=== PATIENT | male | born 1965 | race Caucasian/White ===

== ENCOUNTER 2023-02-03 01:15 | Day surgery (SDC) | payer OTHER, SELFPAY ==
[2023-01-25 16:22] VITALS: BMI 29.1
[2023-02-03 08:51] VITALS: BP 146/91; PULSE 87; RESP 18; TEMP 36.6; O2SAT 100; BMI 29.0
[2023-02-03] MEDS: LACTATED RINGERS 1,000 ML 150 ML IV CONT (09:07)
--- NOTE | 2023-02-03 09:10 | WPDANESEPPF ---
Anes - Initial Pre Proc Eval Procedure: Operation Date: 02/03/23 09:30 Proposed Procedures p Screening Colonoscopy - Rustam Mason MD Date/Time: 02/03/23 09:10 Surgeon: Rustam Mason MD Pre Op Diagnosis: family hx colon ca, neoplasm screening Patient Data Age: 57 Gender: M Height: 1.83 m Weight: 97.3 kg Last Vital Signs Temp 97.8 F 02/03/23 08:51 Pulse 87 02/03/23 08:51 Resp 18 02/03/23 08:51 BP 146/91 H 02/03/23 08:51 Pulse Ox 100 02/03/23 08:51 O2 Del Method Room Air 02/03/23 08:51 Allergies Allergy/AdvReac Type Severity Reaction Status Date / Time No Known Allergies Allergy Verified 01/25/23 16:23 Home Medications Medication Instructions Recorded Confirmed Type loratadine 10 mg tablet (Claritin) 10 mg PO DAILY 12/24/19 01/25/23 History amlodipine 10 mg-olmesartan 40 mg 1 tablet PO DAILY #90 tabs 02/11/20 01/25/23 Rx tablet atorvastatin 20 mg tablet (Lipitor) 20 mg PO DAILY #90 tabs 04/02/20 01/25/23 Rx umeclidinium 62.5 mcg-vilanterol See Rx Instructions .Route 04/19/22 01/25/23 Rx 25 mcg/actuation powdr for .COMPLEX #180 blisters inhalation (Anoro Ellipta) minoxidil 2.5 mg tablet 2.5 mg PO BID #180 tabs 01/05/23 01/25/23 Rx sodium,potassium,mag sulfates 17.5 See Rx Instructions PO .COMPLEX 01/12/23 01/25/23 Rx gram-3.13 gram-1.6 gram oral soln #354 mL (Suprep Bowel Prep Kit) eplerenone 50 mg tablet 50 mg PO DAILY 01/25/23 01/25/23 History hydrochlorothiazide 50 mg tablet 50 mg PO DAILY 01/25/23 01/25/23 History metformin 500 mg tablet 500 mg PO BID 01/25/23 01/25/23 History Patient hx anesthesia problems: none Family hx anesthesia problems: none Results Review: All pre-operative results and documents have been reviewed as part of the pre-operative evaluation. [facility] Surgical History Surgical History Hx of tonsillectomy Family History Family History Father Carcinoma of colon Mother Family history of malignant neoplasm of breast in first degree relative Other Family history of malignant neoplasm of breast Social History Social History Smoking packs per day: 1 Smoking cigarettes per day: 20.0 Years smoked: 40 Smoking pack-years: 40.00 Smoking status: Current every day smoker Smokeless tobacco user: chewing tobacco Alcohol intake: current Drinks per week: 14 Alcohol use details: BEERS Substance use: never Substance use type: does not use Lack of Transportation: No Lack of Food: Never True Current Housing: I Have Housing Concerned About Future Housing: No Difficulty Paying Gas/Electric Bills: No Difficulty Paying for Meds: No Currently Unemployed: No Education: Associate Degree Difficulty w/ Childcare or Family Care: No Living arrangements: with family Spiritual care concerns: No Anes - Eval Final PreProcedure Day of Procedure 02/03/23 09:10 Patient weight: normal Heart: regular rate and rhythm Lungs: clear to auscultation Airway: Mallampati scale class II Neurological: alert and oriented Last oral intake: >/= 8 hours ASA classification: III Emergent: no Anesthetic plan: proceed Anesthesia type and monitoring: general GIVS and standard monitoring Results Review: All pre-operative results and documents have been reviewed as part of the pre-operative evaluation. Informed Consent: The patient's anesthetic plan and its attendant risks and benefits were discussed with the patient/family/POA. Questions were solicited and answers provided to the satisfaction of the patient/family/POA.
--- NOTE | 2023-02-03 09:17 | PM.HPGS ---
History of Present Illness History of Present Illness Consent: Risks, benefits, and alternatives have been discussed and questions answered. Patient agrees to proceed with procedure. Chief complaint: family hx colon ca, neoplasm screening Narrative: Elías Salazar is a 57 year old male Presents for screening colonoscopy. Patient's current weight appetite and bowel movements are normal. Patient denies abdominal pain. He has had no bleeding. Family history is significant that his father had a small colon cancer resected. Patient presents today for screening colonoscopy. Review of Systems Review of Systems: Review of systems noncontributory. [facility] Surgical History Surgical History Hx of tonsillectomy Family History Family History Father Carcinoma of colon Mother Family history of malignant neoplasm of breast in first degree relative Other Family history of malignant neoplasm of breast Social History Social History Smoking packs per day: 1 Smoking cigarettes per day: 20.0 Years smoked: 40 Smoking pack-years: 40.00 Smoking status: Current every day smoker Smokeless tobacco user: chewing tobacco Alcohol intake: current Drinks per week: 14 Alcohol use details: BEERS Substance use: never Substance use type: does not use Lack of Transportation: No Lack of Food: Never True Current Housing: I Have Housing Concerned About Future Housing: No Difficulty Paying Gas/Electric Bills: No Difficulty Paying for Meds: No Currently Unemployed: No Education: Associate Degree Difficulty w/ Childcare or Family Care: No Living arrangements: with family Spiritual care concerns: No Meds Home Medications and Allergies Home Medications Medication Instructions Recorded Confirmed Type loratadine 10 mg tablet (Claritin) 10 mg PO DAILY 12/24/19 01/25/23 History amlodipine 10 mg-olmesartan 40 mg 1 tablet PO DAILY #90 tabs 02/11/20 01/25/23 Rx tablet atorvastatin 20 mg tablet (Lipitor) 20 mg PO DAILY #90 tabs 04/02/20 01/25/23 Rx umeclidinium 62.5 mcg-vilanterol See Rx Instructions .Route 04/19/22 01/25/23 Rx 25 mcg/actuation powdr for .COMPLEX #180 blisters inhalation (Anoro Ellipta) minoxidil 2.5 mg tablet 2.5 mg PO BID #180 tabs 01/05/23 01/25/23 Rx sodium,potassium,mag sulfates 17.5 See Rx Instructions PO .COMPLEX 01/12/23 01/25/23 Rx gram-3.13 gram-1.6 gram oral soln #354 mL (Suprep Bowel Prep Kit) eplerenone 50 mg tablet 50 mg PO DAILY 01/25/23 01/25/23 History hydrochlorothiazide 50 mg tablet 50 mg PO DAILY 01/25/23 01/25/23 History metformin 500 mg tablet 500 mg PO BID 01/25/23 01/25/23 History Allergies Allergy/AdvReac Type Severity Reaction Status Date / Time No Known Allergies Allergy Verified 01/25/23 16:23 Vital Signs Vital Signs - 24 hr 02/03/23 08:51 Temperature 97.8 F Pulse Rate 87 Respiratory Rate 18 Blood Pressure 146/91 H Pulse Oximetry 100 Oxygen Delivery Room Air Exam Narrative: Physical exam reveals patient to be alert. Vital signs stable. HEENT exam is unremarkable. Patient is anicteric. Lungs are clear to auscultation and percussion. Heart is without murmur or extra sounds. Abdomen bowel sounds are present soft nontender with no organomegaly. Digital external rectal exam is normal. Assessment and Plan Assessment and plan (1) Family history of colon cancer in father: Code(s): Z80.0 - Family history of malignant neoplasm of digestive organs Status: Acute Assessment and Plan: Patient's father had a colon cancer. Plan for surveillance colonoscopy now. Consider this a 5 year intervals in the future.
[2023-02-03 09:52] VITALS: BP 117/78; PULSE 87; RESP 18; O2SAT 95
[2023-02-03 10:02] VITALS: BP 138/87; PULSE 91; RESP 20; O2SAT 99
[2023-02-03 10:12] VITALS: BP 135/90; PULSE 89; RESP 18; O2SAT 99
== END 2023-02-03 10:21 | disposition home or self-care (01) ==
PROVIDERS: PCP Emergency Medicine; Visit Provider Internal Medicine Gastroenterology
PROC: 0DJD8ZZ Inspection of Lower Intestinal Tract, Via Natural or Artificial Opening Endoscopic (ICD-10-PCS; CPT 45378; principal; 2023-02-03 09:30)
DX: Z12.11 Encounter for screening for malignant neoplasm of colon (principal); K63.5 Polyp of colon; K64.8 Other hemorrhoids; Z80.0 Family history of malignant neoplasm of digestive organs; F17.210 Nicotine dependence, cigarettes, uncomplicated; F17.220 Nicotine dependence, chewing tobacco, uncomplicated
CPT/HCPCS: 45385; 88305; J2704; J7120

== ENCOUNTER → 2023-04-22 06:42 | Outpatient (REF) | payer OTHER, SELFPAY ==
[2023-04-22 09:40] LABS: Thyroid Stimulating Hormone 0.997 uIU/mL (0.465-4.680)
[2023-04-26 22:31] LABS: Osmolality, Urine 476 mOsm/kg (50-1200)
== END ==
LOC: ANHOUTPT 06:42
PROVIDERS: PCP Emergency Medicine; Visit Provider Internal Medicine Nephrology
DX: E87.1 Hypo-osmolality and hyponatremia (principal)
CPT/HCPCS: 82533; 83930; 83935; 84443; 96372; J0834

== ENCOUNTER 2023-10-10 12:25 | Inpatient (IN) | payer BC, SELFPAY ==
[2023-10-10] VITALS (25 sets, daily range): BP systolic 88–141; BP diastolic 50–79; PULSE 106–133; RESP 16–32; TEMP 36.3–36.9; O2SAT 82–98; BMI 26.9
--- NOTE | ~2023-10-10 | XR_ITS ---
EXAMINATION: XR chest 1V portable DATE: 10/14/2023 10:24 INDICATION: Pneumonia. TECHNIQUE: A single frontal view of the chest was obtained on 2 radiographs. COMPARISON: Chest single view 10/12/2023, chest CT 10/10/2023 FINDINGS: There is a diffuse reticulonodular pattern in the lungs, right worse than left. No pleural effusion or pneumothorax. The heart size is normal. IMPRESSION: 1. Stable diffuse reticulonodular pattern in the lungs, right worse than left, consistent with pneumo abdoulaye. Reviewed, dictated and finalized at [facility]. CAL STAFF SERVICES COORDINATOR IMPRESSION: 1. Stable diffuse reticulonodular pattern in the lungs, right worse than left, consistent with pneumonia.
--- NOTE | ~2023-10-10 | XR_ITS ---
Portable chest x-ray Comparison: 10/10/2023 Clinical History: Pneumonia Findings: Probable mild interstitial edema pattern present. No focal consolidation or pleural effusi on. Cardiomediastinal silhouette is stable. Bones and soft tissues are unremarkable. Impression: Probable mild interstitial edema pattern. Correlate clinically for infection. Reviewed, dictated and finalized at [facility]. TENANCE CRAFTSMAN Impression: Probable mild interstitial edema pattern. Correlate clinically for infection.
--- NOTE | ~2023-10-10 | CT_ITS ---
EXAMINATION: CTA chest PE protocol DATE: 10/10/2023 14:41 INDICATION: Shortness of breath with exertion, cough after cutting grass 2 weeks ago. Elevated d-dime r. TECHNIQUE: Computed tomography angiography (CTA) of the chest was performed with 100 mL Omnipaque-350 intravenous contrast timed to evaluate the pulmonary arteries. Coronal maximum intensity projection 3D-reconstructions were created by the technologist. Automated exposure control and iterative reconst ruction technique were employed. Exam dose: 656.27 mGy-cm total exam DLP. COMPARISON: 10/10/2023 AP and lateral chest FINDINGS: There is diagnostic contrast enhancement of the pulmonary arteries and no evidence of pulmo nary embolism. No thoracic aortic aneurysm or dissection is detected. Small pericardial effusion. Heart size is normal. There are patchy nodular appearing infiltrates scattered throughout both lungs including all lobes, r ight greater than left. There is one cavitary infiltrate or mass measuring approximately 1.6 cm, involving the posteromedial right lower lobe, superior segment. There is mild mediastinal and predominantly right hilar lymph node prominence, likely reactive. Bilateral adrenal hypertrophy. Included skeletal structures are unremarkable other than degenerative changes of the cervical, thorac ic and lumbar spine. IMPRESSION: No evidence of pulmonary embolism Diffuse patchy nodular appearing bilateral pulmonary infiltrates with mild likely reactive mediastina l and right hilar lymphadenopathy. Bilateral pneumonia is suspected 1. Proximal 0.6 and a cavitary infiltrate or less likely mass is noted in the superior segment of the right lower lobe; continued follow-up to resolution is recommended to exclude any malignancy. Reviewed, dictated and finalized at [facility]. Reviewed, dictated and finalized at [facility]. OGRAPHY PROFESSOR IMPRESSION: No evidence of pulmonary embolism Diffuse patchy nodular appearing bilateral pulmonary infiltrates with mild like ly reactive mediastinal and right hilar lymphadenopathy. Bilateral pneumonia is suspected 1. Proximal 0.6 and a cavitary infiltrate or less likely mass is noted in the s uperior segment of the right lower lobe; continued follow-up to resolution is r ecommended to exclude any malignancy.
--- NOTE | ~2023-10-10 | XR_ITS ---
Clinical Indication: Shortness of breath AP and lateral views of the chest: Comparison: None Findings: There is mild interstitial prominence, possible minimal patchy haziness in the right lung. Cardiomediastinal silhouette is within normal limits. Bones and soft tissues are unremarkable. Impression: Findings suggestive of mild interstitial pulmonary edema versus atypical infection. Reviewed, dictated and finalized at [facility]. PATIONAL THERAPY TEACHER Impression: Findings suggestive of mild interstitial pulmonary edema versus atypical infect ion.
--- NOTE | 2023-10-10 12:54 | ECG_ITS ---
Measurements Intervals [place] Rate: 121 P: 81 IN: 187 QRS: 108 QRSD: 122 T: -31 QT: 311 QTc: 442 Interpretive Statements SINUS TACHYCARDIA RIGHT AXIS DEVIATION INCOMPLETE RIGHT BUNDLE BRANCH BLOCK BORDERLINE R WAVE PROGRESSION, ANTERIOR LEADS NONSPECIFIC ST ELEVATION IN ANTEROLATERAL LEADS BORDERLINE ST-T WAVE ABNORMALITY- INFERIOR LEADS BASELINE ARTIFACT- I, III, AVL ABNORMAL ECG NO PREVIOUS ECG AVAILABLE FOR COMPARISON Electronically Signed On 10-10-2023 13:52:17 [employer] by Konstantin Kaur D.O.
[2023-10-10 13:16] LABS: Hematocrit 45.1 % (42.0-52.0); Hemoglobin 14.8 g/dL (14.0-18.0); Mean Corpuscular HGB Conc 32.8 g/dl (32-36); Mean Corpuscular Hemoglobin 31.5 pg (26-34); Mean Platelet Volume 8.5 fl (7.4-10.4); Platelet Count Result 294 k/mm3 (150-375); Red Cell Distribution Width 13.2 % (11.5-14.5); White Blood Count 11.3 K/mm3 (4.5-10.0)
--- NOTE | 2023-10-10 13:23 | ED.GENADULT ---
HPI - General Adult General Chief complaint: Shortness of Breath/Dyspnea Stated complaint: fatigue, decreased appetite Time Seen by Provider: 10/10/23 13:13 History of Present Illness HPI narrative: 57-year-old male history of smoking history of COPD presented to the emergency department for evaluation increased cough and congestion. Patient states he initially started noticing his symptoms Tuesday after mowing the grass. Patient states over the last few days he has had increased sputum production cough and shortness of breath. Patient states he is a smoker and does continue to smoke but has not smoked over the last few days. Patient denies any chest pain but does have exertional shortness of breath. Related Data Home Medications Medication Instructions Recorded Confirmed loratadine 10 mg tablet (Claritin) 10 mg PO DAILY 12/24/19 09/21/23 eplerenone 50 mg tablet 50 mg PO DAILY 01/25/23 09/21/23 metformin 500 mg tablet 500 mg PO BID 01/25/23 09/21/23 Allergies Allergy/AdvReac Type Severity Reaction Status Date / Time No Known Allergies Allergy Verified 09/21/23 10:49 Review of Systems Review of Systems: All systems reviewed & are unremarkable except as noted in HPI and below PMFSH Surgical History Surgical History Hx of tonsillectomy Family History Family History Father Carcinoma of colon Mother Family history of malignant neoplasm of breast in first degree relative Other Family history of malignant neoplasm of breast Social History Social History (Updated 09/21/23 @ 10:51 by Shannan Meyer) Social History: Caffeine- coffee Smoking packs per day: 1 Smoking cigarettes per day: 20.0 Years smoked: 40 Smoking pack-years: 40.00 Smoking status: Current every day smoker Alcohol intake: current Drinks per week: 14 Alcohol use details: BEERS Substance use: never Substance use type: does not use Lack of Transportation: No Lack of Food: Never True Current Housing: I Have Housing Concerned About Future Housing: No Difficulty Paying Gas/Electric Bills: No Difficulty Paying for Meds: No Currently Unemployed: No Education: Associate Degree Difficulty w/ Childcare or Family Care: No Living arrangements: with family Gender identity (if verbalized by the patient): Male Spiritual care concerns: No Exam Narrative: APPEARANCE: Well appearing, no pain, no distress, well-nourished. HEAD: normocephalic, atraumatic. EYES: PERRLA/EOMI, conjunctivae clear. NOSE: Normal no drainage NECK: Supple. No adenopathy, no masses. RESPIRATORY: Decreased air movement bilaterally, wheeze bilaterally CARDIOVASCULAR: Regular rate and rhythm without murmurs rubs or gallops. ABDOMINAL: Soft, nontender, nondistended, normal bowel sounds MUSCULOSKELETAL: Moves all extremities. Strength/ROM intact, No edema, No calf tenderness. NEURO: Alert. Cranial nerves II through XII intact. SKIN: Warm, dry. Normal Color Course Course Emergency Course: 49-year-old male presented the emergency department for evaluation of increased shortness of breath. Patient does have an elevated BNP and does have evidence of pulm edema on his chest x-ray. D-dimer was elevated and CTA PE did show evidence of pneumonia. Patient was started on antibiotics in the ED for pneumonia. Patient was initially treated with a dose of IV Lasix but patient's blood pressure did become soft so he was treated with 500 mL normal saline bolus. Case was discussed with hospitalist and patient was accepted for admission. Patient and family were updated on the plan for admission. All question concerns were addressed Vital Signs Vital signs: Vital Signs Temperature 98.4 F 10/10/23 12:40 Pulse Rate 122 H 10/10/23 12:40 Respiratory Rate 24 H 10/10/23 12:40 Blood Pressure 92/50 L 10/10/23 12:40 Pulse Oximetry 82 L 09/28
[2023-10-10 13:26] LABS: Alanine Aminotransferase 65 U/L (6-50); Albumin Level 4.2 g/dL (3.5-5.1); Alkaline Phosphatase 75 U/L (38-126); Anion Gap 10 mmol/L (8-16); Aspartate Amino Transferase 51 U/L (17-59); Bilirubin,Total 0.7 mg/dL (0.2-1.3); Blood Urea Nitrogen 58 mg/dL (9-20); Carbon Dioxide 35 mmol/L (22-30); Chloride 89 mmol/L (98-107); Estimated CRCL calculation 71 ml/min; Estimated Glomerular Filt Rate > 60; Glucose 135 mg/dL (65-110); Potassium 3.6 mmol/L (3.4-5.0); Sodium 134 mmol/L (137-145)
--- NOTE | 2023-10-10 13:31 | PCRCNOTE ---
Patient taken to XR, will give Neb Tx. & obtain ABG when pt. Returns
[2023-10-10] MEDS: methylPREDNISolone SOD SUCC 125 MG VIAL IV PUSH (13:36)
[2023-10-10 13:41] LABS: Band Neutrophils Percent 15 % (0-6); Eosinophils Absolute Manual 0.11 K/mm3 (0.02-0.5); Eosinophils Percent Manual 1 % (0-4); Lymphocytes Percent Manual 8 % (18-44); Monocytes Percent Manual 16 % (3-9); Neutrophils Absolute Manual 8.47 K/mm3 (1.3-6.7); Neutrophils Percent Manual 60 % (46-73); Nucleated Red Blood Cells 1 %; Total Cells Counted 100
[2023-10-10 13:42] LABS: Platelet Estimate Adequate (Adequate)
[2023-10-10 13:43] LABS: Schistocytes None Seen (NORMAL)
[2023-10-10] MEDS: ALBUTEROL SULFATE NEB 2.5 MG/3 ML INH 5 MG INHALATION (13:44)
[2023-10-10 13:53] LABS: Alveolar/Arterial O2 Gradient 136.4 mmHg; Base Excess ABG 1.7 mEq/l (+/-2.0); Carboxyhemoglobin 2.2 % THb (0-2.0); Device NASAL CANNULA; Fractional Inspired Oxygen 36 %; HCO3 ABG 28.9 mEq/l (22.0-26.0); Methemoglobin ABG 0.3 %THb (0-1.5); Modified Allen's Test Pass; Oxygen Content ABG 18.8 %vol (16.0-22.0); Oxygen Saturation ABG 87.1 % (95.0-100.0); Oxyhemoglobin 84.1 % THb (90.0-100.0); PCO2 ABG 55.1 mmHg (35.0-45.0); PO2 ABG 56.4 mmHg (80.0-100.0); PO2 FiO2 Ratio Arterial Blood 1.57 %; Reduced Hemoglobin 13.4 %THb (0-5.0); Site Drawn RIGHT RADIAL; Total Hemoglobin 15.9 g/dL (12.0-18.0); pH ABG 7.337 (7.350-7.450)
[2023-10-10 14:08] LABS: D Dimer 0.71 ug/mL (<0.48)
[2023-10-10] MEDS: LEVALBUTEROL NEB 1.25 MG/3 ML 2.5 MG INHALATION (14:09)
[2023-10-10 14:24] LABS: Influenza A QL RT-PCR Negative (Negative); Influenza B QL RT-PCR Negative (Negative); RSV RNA, RT-PCR Negative (Negative); SARS-CoV-2 RNA PCR Negative (Negative)
[2023-10-10 14:25] LABS: NT Pro B Type Natriuretic Pept 6090 pg/mL (19.9-100)
[2023-10-10] MEDS: FUROSEMIDE INJ 40 MG/4 ML VIAL IV PUSH (15:28)
[2023-10-10] MEDS: methylPREDNISolone SOD SUCC 125 MG VIAL (15:28)
[2023-10-10] MEDS: AZITHROMYCIN 500 MG/NS 250 ML 500 MG/250 ML BAG 250 MG IVPB (16:32)
[2023-10-10 16:34] LABS: Lactic Acid Reflex 1.3 mmol/L (0.7-2.0)
[2023-10-10 17:21] LABS: MRSA (PCR) NOT DETECTED (NOT DETECTE)
[2023-10-10] MEDS: SODIUM CHLORIDE 0.9% IV 500 ML 999 ML IV CONT (18:05)
[2023-10-10] MEDS: VANCOMYCIN 1,250 MG/NS 250 ML 1,250 MG/250 ML BAG 166.67 MG IVPB ×2 (18:51→21:04)
[2023-10-10] MEDS: LEVALBUTEROL NEB 1.25 MG/3 ML 0.63 MG INHALATION (20:02)
--- NOTE | 2023-10-10 20:16 | PM.IMHP ---
H&P: HPI History of Present Illness Date/Time: 10/10/23 16:15 Chief Complaint: Shortness of breath. Narrative: This is a pleasant 57-year-old male smoker with probable COPD, hypertension, hyperlipidemia, and prediabetes who presented to the emergency department via private vehicle for evaluation of shortness of breath. The patient provides the following history. He has not felt well for nearly a week with progressive shortness of breath, cough productive of yellow/brown phlegm, decreased appetite, and fatigue. His symptoms started after mowing the grass and he initially attributed his symptoms to possible allergies. Over the course of the last 3 days he has been extremely fatigued and states that he slept almost all weekend. He has had some loose stools but that seems to be improving. He had sweats but no documented fever. He denies headache, sinus congestion, sore throat, sick contacts, exertional chest pain, pleuritic pain, and vomiting. He denies sick contacts. In the ED: He has been afebrile since arrival. He has been consistently in a sinus tachycardia with rates in the 1 teens to 120s. SpO2 was 82% on arrival and he was placed on high-flow nasal cannula and was eventually transitioned to BiPAP. Labs were significant for a WBC count of 11.3 with 15% bands, D-dimer 0.71, sodium 134, potassium 3.6, carbon dioxide 35, BUN 58, creatinine 1.10, lactic acid 1.3, proBNP 6090. He tested negative for influenza, RSV, and COVID. Chest x-ray showed findings suggestive of mild interstitial pulmonary edema versus atypical infection. Chest CTA showed no evidence of pulmonary embolism but did note bilateral pulmonary infiltrates and an approximately 1.6 cm cavitary infiltrate in the superior segment of the right lower lobe. ABG showed a pH of 7.327, pCO2 55.1, bicarb 28.9. He was given a nebulizer treatment, Solu-Medrol, azithromycin, ceftriaxone, and vancomycin he is being admitted in this setting for further treatment. Review of Systems Review of Systems: Twelve systems were reviewed and are negative except for as per HPI. [facility] Past Medical History Medical History (Updated 10/10/23 @ 20:41 by Taylor Landrum PA-C) Hyperlipidemia Hypertension Prediabetes Suspected chronic obstructive pulmonary disease based on initial evaluation Tobacco dependence Surgical History Surgical History (Updated 10/10/23 @ 20:34 by Taylor Landrum PA-C) History of tonsillectomy Family History Family History Father Carcinoma of colon Mother Family history of malignant neoplasm of breast in first degree relative Other Family history of malignant neoplasm of breast Social History Social History (Updated 10/10/23 @ 20:35 by Taylor Landrum PA-C) Social History: Surrogate medical decision maker: Cecy Salazar, spouse. Code status: Full code. Smoking packs per day: 1 Smoking cigarettes per day: 20.0 Years smoked: 40 Smoking pack-years: 40.00 Smoking status: Current every day smoker Alcohol intake: current Drinks per week: 14 Alcohol use details: Beer Substance use: never Substance use type: does not use Lack of Transportation: No Lack of Food: Never True Current Housing: I Have Housing Concerned About Future Housing: No Difficulty Paying Gas/Electric Bills: No Difficulty Paying for Meds: No Currently Unemployed: No Education: Associate Degree Difficulty w/ Childcare or Family Care: No Living arrangements: with family Spiritual care concerns: No Meds Home Medications and Allergies Home Medications Medication Instructions Recorded Confirmed Type loratadine 10 mg tablet (Claritin) 10 mg PO DAILY 12/24/19 10/10/23 History minoxidil 2.5 mg tablet 2.5 mg PO BID #180 tabs 01/05/23 10/10/23 Rx eplerenone 50 mg tablet 50 mg PO DAILY 01/25/23 10/10/23 History metformin 500 mg tablet 500 mg PO BID 01/25/23 10/10/23 History yovany
--- NOTE | 2023-10-10 20:52 | ADMGEN ---
This patient, Elías Salazar, was admitted to IMU Room 201-01. Patient/family oriented to hospital policies and general routines including ID bracelet, bed and alarms, visiting hours, pain management, procedures, bathroom and other care routines, personal items, smoking policy, room service/diet, and visiting hours. Information on how to activate the Rapid Response Team has been discussed. Patient/Family are encouraged to report perceived risks to care and to ask questions if they do not understand what they are told or what they should do.
[2023-10-10 20:58] LABS: Alveolar/Arterial O2 Gradient 217.3 mmHg; Base Excess ABG 3.5 mEq/l (+/-2.0); Carboxyhemoglobin 1.2 % THb (0-2.0); Fractional Inspired Oxygen 50 %; HCO3 ABG 31.4 mEq/l (22.0-26.0); Methemoglobin ABG 0.2 %THb (0-1.5); Oxygen Content ABG 19.6 %vol (16.0-22.0); Oxygen Saturation ABG 92.6 % (95.0-100.0); Oxyhemoglobin 91.5 % THb (90.0-100.0); PO2 ABG 70.4 mmHg (80.0-100.0); PO2 FiO2 Ratio Arterial Blood 1.41 %; Reduced Hemoglobin 7.1 %THb (0-5.0); Total Hemoglobin 15.2 g/dL (12.0-18.0); pH ABG 7.328 (7.350-7.450)
[2023-10-10 21:03] LABS: Device HIGH FLOW NASAL CANN; Modified Allen's Test Pass; PCO2 ABG 61.2 mmHg (35.0-45.0); Site Drawn RIGHT RADIAL
[2023-10-10] MEDS: guaiFENesin 12 HR 600 MG TABCR PO (21:12)
[2023-10-10 23:35] LABS: Alveolar/Arterial O2 Gradient 219.4 mmHg; Fractional Inspired Oxygen 50 %; HCO3 ABG 30.1 mEq/l (22.0-26.0); Oxygen Content ABG 18.7 %vol (16.0-22.0); Oxygen Saturation ABG 95.5 % (95.0-100.0); Oxyhemoglobin 94.3 % THb (90.0-100.0); PO2 ABG 79.7 mmHg (80.0-100.0); PO2 FiO2 Ratio Arterial Blood 1.59 %; Total Hemoglobin 14.1 g/dL (12.0-18.0); pH ABG 7.389 (7.350-7.450)
[2023-10-10 23:36] LABS: Device NON-INVASIVE VENT; Modified Allen's Test Pass; Site Drawn LEFT RADIAL
[2023-10-10 23:37] LABS: Non-Invasive Expiratory Pressure 8 CMH2O; Non-Invasive Inspiratory Pressure 18 CMH2O; Non-Invasive Vent Rate 20 /MIN
[2023-10-11] VITALS (31 sets, daily range): BP systolic 82–146; BP diastolic 48–80; PULSE 92–124; RESP 18–28; TEMP 36.4–37.3; O2SAT 90–100
--- NOTE | 2023-10-11 | ECHO_ITS ---
Patient Info Name: Elías Salazar Age: 57 years : 1965 Gender: Male Ht: 72 in Wt: 198 lbs BSA: 2.15 m2 HR: 99 bpm BP: 96 / 56 mmHg Heart Rhythm: Tachycardia Technical Quality: Fair Exam Date: 10/11/2023 10:27 AM Exam Location: Echo Lab Patient Status: Inpatient Admit Date: 10/11/2023 Staff Ordering Physician: Taylor Landrum PA-C Plating Tank Operator: Jyoti Young RDCS Attending Provider: Alejandro Gonzalez MD Referring Physician: Diallo COOLEY; Exam Type: CA echo doppler w bubble study Study Info Indications - hypoxia, smoker, elevated BNP Complete two-dimensional, color flow and Doppler transthoracic echocardiogram is performed with agitated saline. Contrast/Agitated Saline Contrast/Ag. Saline: Agitated Saline Amount: 20.00 ml Administered By: Elaine Craig RDCS Existing IV Access: Yes IV Access Condition: patent with no signs of infiltration Summary 1. Left ventricular chamber dimension is normal. 2. Left ventricular systolic function is hyperdynamic, estimated at >70%. 3. D shaped septum during systole suggests right ventricular pressure overload. 4. The left ventricular diastolic function is grade I diastolic dysfunction. 5. E/e' 4 is not elevated. 6. Right ventricular systolic function is severely reduced. 7. Right ventricular chamber dimension is severely enlarged. 8. Right atrial chamber dimension is moderately enlarged. 9. There is moderate aortic valve sclerosis. 10. There is trace tricuspid valve regurgitation. 11. Normal inferior vena cava with <50% collapse upon inspiration consistent with elevated right atrial pressure, 10 mmHg. 12. There is trivial pericardial effusion. Left Ventricle E/e' 4 is not elevated. D shaped septum during systole suggests right ventricular pressure overload. Left ventricular chamber dimension is normal. Left ventricular systolic function is hyperdynamic, estimated at >70%. The left ventricular diastolic function is grade I diastolic dysfunction. Right Ventricle Right ventricular systolic function is severely reduced. Right ventricular chamber dimension is severely enlarged. Left Atria Left atrial chamber dimension is normal. Right Atria Right atrial chamber dimension is moderately enlarged. Atrial Septum Agitated saline injection with and without valsalva maneuver opacified right side cardiac chambers without shunt to left side cardiac chambers. Intact interatrial septum visualized by 2D and agitated saline imaging. Aortic Valve The aortic valve is trileaflet. There is moderate aortic valve sclerosis. There is no aortic valve stenosis. There is no aortic valve regurgitation. Pulmonic Valve There is no pulmonic regurgitation. Mitral Valve There is no mitral valve stenosis. There is no mitral valve regurgitation. Tricuspid Valve There is trace tricuspid valve regurgitation. No pulmonary hypertension, estimated pulmonary arterial systolic pressure is 38 mmHg. Pericardium/Pleural There is trivial pericardial effusion. Inferior Vena Cava Normal inferior vena cava with <50% collapse upon inspiration consistent with elevated right atrial pressure, 10 mmHg. Aorta The aortic root size at the sinus of Valsalva is normal. Left Ventricular Outflow Tract Name Value Normal LVOT 2D LVOT
[2023-10-11] MEDS: SODIUM CHLORIDE 0.9% IV 1,000 ML 999 ML IV CONT (00:40)
[2023-10-11] MEDS: IPRATROPIUM BR 0.02% INH SOLN 0.5 MG/2.5 ML VIAL INHALATION ×4 (02:46→19:50)
[2023-10-11] MEDS: LEVALBUTEROL NEB 1.25 MG/3 ML 0.63 MG INHALATION ×4 (02:47→19:50)
--- NOTE | 2023-10-11 03:20 | PC.NURSE ---
The patient's home med was administered from the bottle labeled for 10/13, as this one was grabbed by mistake. This RN witnessed him locking the empty in his private lockbox.
[2023-10-11 05:12] LABS: Basophils Absolute Auto 0.1 K/mm3 (0.0-0.1); Basophils Percent Auto 0.4 % (0.2-1.2); Eosinophils Percent Auto 0.1 % (0-4.4); Hematocrit 37.6 % (42.0-52.0); Hemoglobin 12.3 g/dL (14.0-18.0); Immature Granulocyte Absolute 0.21 K/mm3 (0.00-0.031); Immature Granulocyte Percent A 1.8 % (0-0.5); Lymphocytes Absolute Auto 1.04 K/mm3 (0.9-3.2); Lymphocytes Percent Auto 9.1 % (18.3-44.2); Mean Corpuscular HGB Conc 32.7 g/dl (32-36); Mean Corpuscular Hemoglobin 31.9 pg (26-34); Mean Corpuscular Volume 97.4 fl (80-100); Mean Platelet Volume 8.6 fl (7.4-10.4); Monocytes Absolute Auto 1.9 K/mm3 (0.1-0.6); Monocytes Percent Auto 16.8 % (2.6-8.5); Neutrophils Absolute Auto 8.2 K/mm3 (1.3-6.7); Neutrophils Percent Auto 71.8 % (45.5-73.1); Nucleated Red Blood Cells Absolute Auto 0.1 K/mm3 (0.0-0.012); Nucleated Red Blood Cells Perc 0.6 % (0.0-0.2); Platelet Count Result 283 k/mm3 (150-375); Red Blood Count 3.86 M/mm3 (4.6-6.20); Red Cell Distribution Width 13.2 % (11.5-14.5); White Blood Count 11.4 K/mm3 (4.5-10.0)
[2023-10-11 05:24] LABS: Anion Gap 9 mmol/L (8-16); Blood Urea Nitrogen 61 mg/dL (9-20); Calcium 8.2 mg/dL (8.4-10.2); Carbon Dioxide 33 mmol/L (22-30); Chloride 96 mmol/L (98-107); Estimated CRCL calculation 66 ml/min; Estimated Glomerular Filt Rate > 60; Glucose 138 mg/dL (65-110); Magnesium 3.3 mg/dL (1.6-2.3); Potassium 4.2 mmol/L (3.4-5.0); Sodium 138 mmol/L (137-145)
[2023-10-11 06:28] LABS: Poikilocytosis 1+ (NORMAL)
[2023-10-11 06:29] LABS: Burr Cells 1+ (NORMAL); Schistocytes None Seen (NORMAL)
[2023-10-11 07:53] LABS: Free T4 Free Thyroxine Reflex 1.39 ng/dL (0.78-2.19)
[2023-10-11] MEDS: UMECLIDINIUM/VILANTEROL 62.5-25 MCG ELLIPTA 1 PUFF INHALATION (07:56)
[2023-10-11] MEDS: LORATADINE 10 MG TABLET PO (08:46)
[2023-10-11] MEDS: ENOXAPARIN 40 MG/0.4 ML SYRINGE SUB-Q (08:46)
[2023-10-11] MEDS: guaiFENesin 12 HR 600 MG TABCR PO ×2 (08:46→20:42)
--- NOTE | 2023-10-11 10:40 | PM.CNPUL ---
Assessment and Plan Assessment and plan (1) Multifocal pneumonia: Code(s): J18.9 - Pneumonia, unspecified organism Status: Acute Assessment and Plan: Patient presents with a 7 day history of shortness of breath, cough, night sweats, leukocytosis, CT scan with no PE but bilateral nodular tree-in-bud infiltrates with a 6 mm cavitary infiltrate in the right lower lobe. Plan: Blood cultures are pending. I will send a sputum culture. Given the tree-in-bud infiltrates I will also send a respiratory pathogen panel to [email or web address]. I have also ordered a QuantiFERON gold test as well as serologies including a hypersensitivity pneumonitis panel. I will send AFB x3 to look for atypical mycobacterium. Given his cavity I will change him to Zosyn and continue the azithromycin. Will follow with you. (2) Acute respiratory failure with hypoxia and hypercapnia: Code(s): J96.01 - Acute respiratory failure with hypoxia; J96.02 - Acute respiratory failure with hypercapnia Status: Acute Assessment and Plan: Patient carries a diagnosis of COPD and presented with an ABG demonstrated hypercarbic respiratory failure with a PaCO2 of 55. His serum bicarbonate was 35. Plan: The patient said the BiPAP was uncomfortable and I switched him to an AVAPS mode and adjusted the settings to comfort resulting in a rate of 10, tidal volume 500, EPAP 4, minimal inspiratory pressure 5, maximal inspiratory pressure 25, inspiratory time 0.9, rise of 1 which is are fastest and 36%. I will order an overnight oximetry on these settings and a ABG prior to removal. I will repeated ABG later during this hospitalization after he has clinically improved to determine if he has chronic hypercarbic respiratory failure. History of Present Illness History of Present Illness Consult date: 10/11/23 Chief complaint: Pneumonia/Hypoxia/Tachycardia Narrative: 10/11/2023: This is a new pulmonary consult for pneumonia. 57-year-old with a history of hypertension, current tobacco use and carries a diagnosis of COPD. 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 He can walk 2 blocks. He has a chronic cough with sputum production. Patient is a current smoker and has been smoking since age 15 at 1 pack per day for a total of 42 pack years. Patient denies secondhand smoke exposure. Patient denies vaping, illicit drug use, sandblasting, welding, professional painting or steel mill manager. 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 Patient did obtain chickens in the spring of this year and currently has 26 chickens. Patient states that when he cleans the check an maneuver he develops more shortness of breath. Seven days ago the patient was in his usual state of health and then cut the grass which took him 3 hours and he was covered in dust and inhaled a lot of dust. That night he developed shortness of breath, cough and dark brown colored phlegm. Over the next week he had continued symptoms including night sweats with no chest pain or hemoptysis. Patient presented to the ED on 10/10 with shortness of breath, bilateral wheezing, room air saturations 82%, white blood cell count 11.3, eosinophils 1% equals 11 per micro L, D-dimer 0.71, COVID, influenza, RSV, MRSA RT PCR negative, BNP 6090, ABG on 4 L 7.34/55/56. ABG on 8 L 7.33/61/70. Patient had a chest x-ray with hazy bilateral infiltrates. CT scan of the chest showed no PE, bilateral multilobar nodular tree-in-bud infiltrates throughout with a 0.6 cm cavity surrounded by infiltrate in the right lower lobe. Patient was started on BiPAP with a repeat blood gas on BiPAP rate of 20, pressures 18/8 and 50% of 7.39/51/80. Patient was started on vancomycin, ceftriaxone and azithromycin. Patient was given Solu-Medrol 120 5 times once. Patient was started on levalbuterol and ipratropium nebulizers. 10/11/2023: The patient tells me that he bonner
[2023-10-11] MEDS: PIPERACILLN/TAZ 3.375GM/NS50ML 3.375 GM/50 ML BAG IVPB ×3 (11:00→23:40)
--- NOTE | 2023-10-11 13:52 | PM.IMPN ---
Progress Note: A&P Assessment and Plan (1) Acute respiratory failure with hypoxia and hypercapnia: Code(s): J96.01 - Acute respiratory failure with hypoxia; J96.02 - Acute respiratory failure with hypercapnia Status: Acute Assessment and Plan: SpO2 was 82% on room air on arrival to the ED. ABG showed a pH of 7.337, pCO2 55.1, bicarb 28.9. May very well have some component of chronic respiratory failure. Suspected COPD though no official diagnosis. Currently on BiPAP and tolerating well. Repeat ABG this evening, wean as tolerated. 10/11: Dr. Bowles to switch patient to AVAPS, NIPPV had to be restarted due to tachycardia and respiratory distress after exam. (2) Multifocal pneumonia: Code(s): J18.9 - Pneumonia, unspecified organism Status: Acute Assessment and Plan: Chest CT showed diffuse patchy nodular bilateral pulmonary infiltrates, likely pneumonia. Continue azithromycin, ceftriaxone, and vancomycin (pending MRSA screen). Send sputum for culture. Check Legionella pneumococcal antigens. 10/11: MRSA screen negative, vancomycin discontinued (3) Tobacco dependence: Code(s): F17.200 - Nicotine dependence, unspecified, uncomplicated Status: Acute Assessment and Plan: Smoking cessation is imperative though he is not motivated and declines the need for nicotine patch at this time. (4) Cavitary lesion of lung: Code(s): J98.4 - Other disorders of lung Status: Acute Assessment and Plan: CT scan shows a 1.6 cm cavitary infiltrate in the superior segment of the right lower lobe. Most likely related to pneumonia. Continue follow-up to resolution is recommended to exclude malignancy. 10/11: Pulmonology consulted, appreciate assistance and guidance (5) Suspected chronic obstructive pulmonary disease based on initial evaluation: Code(s): J44.9 - Chronic obstructive pulmonary disease, unspecified Status: Acute Assessment and Plan: He is prescribed an inhaler but has never been formally diagnosed with COPD. Continue scheduled bronchodilators and prescribed inhaler. Hold steroids; no bronchospasm on exam at this time. May need home O2 evaluation prior to discharge. Will need formal PFTs as an outpatient. 10/11: Pulmonology consulted, appreciate assistance and guidance (6) Hypertension: Code(s): I10 - Essential (primary) hypertension Status: Acute Assessment and Plan: Blood pressures were reviewed and they have been running at the low end of normal. Hold antihypertensives for now. Continue to monitor blood pressures q.4 hours. (7) Tachycardia: Code(s): R00.0 - Tachycardia, unspecified Status: Acute Assessment and Plan: Likely related work of breathing, hypoxia, and bronchodilators. Developing sepsis is a possibility. Check lactic acid level and TSH. Blood cultures have been ordered. ProBNP also elevated, check echocardiogram. Plan Pulmonology consulted, appreciate assistance. Antibiotics changed to Zosyn and azithromycin. Time Spent With Patient Time with patient: Greater than 35 minutes Subjective Date/time seen: 10/11/23 13:52 Interval history: See Pulmonology Note for more complete interval history. 10/11: Patient admitted for multifocal pneumonia with 1.6 cm cavitary lesion and COPD exacerbation with hypoxia. Patient was placed on BiPAP after blood gas showed hypercapnic hypoxic acute respiratory. Patient reported discomfort with BiPAP overnight. Pulmonology saw patient and made changes and placed him on AVAPS. Patient had been off the BiPAP on high-flow nasal cannula with good saturations but he was beginning to get more dyspneic and diaphoretic and tachycardic so he was placed back on AVAPS. Review of Systems Review of Systems: ROS unobtainable: Yes unobtainable due to medical condition Exam Narrative: General: Moderately ill-appearing gentleman alma
[2023-10-11] MEDS: AZITHROMYCIN 500 MG/NS 250 ML 500 MG/250 ML BAG 250 MG IVPB (17:01)
[2023-10-11] MEDS: LACTATED RINGERS 1,000 ML 75 ML IV CONT (17:01)
[2023-10-12] VITALS (24 sets, daily range): BP systolic 106–138; BP diastolic 61–76; PULSE 76–110; RESP 18–97; TEMP 36.1–37.2; O2SAT 90–99
--- NOTE | 2023-10-12 02:51 | PCRCNOTE ---
Pt doing sleep study.
[2023-10-12] MEDS: LACTATED RINGERS 1,000 ML 75 ML IV CONT (05:26)
[2023-10-12] MEDS: PIPERACILLN/TAZ 3.375GM/NS50ML 3.375 GM/50 ML BAG IVPB ×4 (05:26→23:06)
[2023-10-12 05:49] LABS: Creatine Kinase 84 U/L (55-170)
[2023-10-12 05:51] LABS: Alveolar/Arterial O2 Gradient 94.6 mmHg; Base Excess ABG 15.7 mEq/l (+/-2.0); Fractional Inspired Oxygen 36 %; HCO3 ABG 45.5 mEq/l (22.0-26.0); Oxygen Content ABG 19.4 %vol (16.0-22.0); Oxygen Saturation ABG 92.5 % (95.0-100.0); Oxyhemoglobin 92.2 % THb (90.0-100.0); PO2 ABG 69.2 mmHg (80.0-100.0); PO2 FiO2 Ratio Arterial Blood 1.92 %; pH ABG 7.372 (7.350-7.450)
[2023-10-12 08:01] LABS: NT Pro B Type Natriuretic Pept 1040 pg/mL (19.9-100)
[2023-10-12] MEDS: IPRATROPIUM BR 0.02% INH SOLN 0.5 MG/2.5 ML VIAL INHALATION ×3 (08:36→20:11)
[2023-10-12] MEDS: LEVALBUTEROL NEB 1.25 MG/3 ML 0.63 MG INHALATION ×3 (08:36→20:10)
[2023-10-12] MEDS: UMECLIDINIUM/VILANTEROL 62.5-25 MCG ELLIPTA 1 PUFF INHALATION (08:36)
[2023-10-12 08:43] LABS: Rheumatoid Factor < 12.0 IU/ML (<12)
[2023-10-12] MEDS: LORATADINE 10 MG TABLET PO (09:08)
[2023-10-12] MEDS: ENOXAPARIN 40 MG/0.4 ML SYRINGE SUB-Q (09:08)
[2023-10-12] MEDS: guaiFENesin 12 HR 600 MG TABCR PO ×2 (09:08→21:31)
[2023-10-12 09:48] LABS: Influenza A QL RT-PCR Negative (Negative); Influenza B QL RT-PCR Negative (Negative); RSV RNA, RT-PCR Negative (Negative); SARS-CoV-2 RNA PCR Negative (Negative)
--- NOTE | 2023-10-12 10:10 | PM.PNPUL ---
Progress Note: A&P Assessment and Plan (1) Multifocal pneumonia: Code(s): J18.9 - Pneumonia, unspecified organism Status: Acute Assessment and Plan: Patient presents with a 7 day history of shortness of breath, cough, night sweats, leukocytosis, CT scan with no PE but bilateral nodular tree-in-bud infiltrates with a 6 mm cavitary infiltrate in the right lower lobe. Plan: Blood cultures are pending. I will send a sputum culture. Given the tree-in-bud infiltrates I will also send a respiratory pathogen panel to [email or web address]. I have also ordered a QuantiFERON gold test as well as serologies including a hypersensitivity pneumonitis panel. I will send AFB x3 to look for atypical mycobacterium. Given his cavity I will change him to Zosyn and continue the azithromycin. 10/12: The patient tells me he is breathing better today. His cough and phlegm persist but are much improved. He has no shortness of breath at rest. He is afebrile. When I enter the room he is on 8 L nasal cannula saturation 98%. I decreased him to 5 L nasal cannula. Chest x-ray today with bilateral diffuse interstitial alveolar infiltrates with no significant change from 10/10/2023. Regarding the tree-in-bud infiltrates his rheumatoid factor is less than 12, CPK is normal at 84 and remainder of serologies are pending. Plan: Patient is clinically improved. Will continue Zosyn, day 2 and azithromycin, day 3. Blood cultures negative, sputum culture and AFB x1 are pending. I will repeat COVID, influenza in RSV RT PCR today. Goal saturation 90-94%, wean FiO2 accordingly. Will follow with you. (2) Acute respiratory failure with hypoxia and hypercapnia: Code(s): J96.01 - Acute respiratory failure with hypoxia; J96.02 - Acute respiratory failure with hypercapnia Status: Acute Assessment and Plan: 10/11 Patient carries a diagnosis of COPD and presented with an ABG demonstrated hypercarbic respiratory failure with a PaCO2 of 55. His serum bicarbonate was 35. Plan: The patient said the BiPAP was uncomfortable and I switched him to an AVAPS mode and adjusted the settings to comfort resulting in a rate of 10, tidal volume 500, EPAP 4, minimal inspiratory pressure 5, maximal inspiratory pressure 25, inspiratory time 0.9, rise of 1 which is are fastest and 36%. I will order an overnight oximetry on these settings and a ABG prior to removal. I will repeated ABG later during this hospitalization after he has clinically improved to determine if he has chronic hypercarbic respiratory failure. Later in the day echocardiogram with normal LVEF, grade 1 diastolic dysfunction, severely decreased right ventricular function with severe enlargement. Moderate enlargement right atrium, negative bubble study, PASP 38 10/12: The patient tells me he wore the hospital noninvasive ventilator with the AVAPS mode 36% last night. Overnight oximetry on AVAPS with 36% FiO2 with recording duration of 8 hours and 27 minutes. Average saturation 96%. Low saturation 85%. Time with saturation less than or equal to 88% was 1 minute. Oxygen desaturation index is 2.9. Regarding his right heart failure repeat BNP today is 1040 improved from 6090. No evidence of ascites or pedal edema. Etiology includes pulmonary hypertension from lung disease, chronic hypoxemic and hypercarbic respiratory failure, possible sleep-related breathing disorder. No evidence of LV systolic function or valvular abnormalities on echocardiogram. No PE on CT angiogram of the chest. Workup for autoimmune or connective tissue disorder is pending. Plan: ABG at the end of the night on the above settings was not obtained and I will reorder this for the morning. Current AVAPS mode with 36% FiO2 provides adequate oxygenation. Patient with evidence of right heart failure with pulmonary hypertension. Will discuss diuresis with the hospitalist. Subjective Date/time seen: 10/12/23 10:10 Interval history:
[2023-10-12 11:44] LABS: Modified Allen's Test Pass; Site Drawn RIGHT RADIAL
[2023-10-12 11:46] LABS: Device NON-INVASIVE VENT
[2023-10-12 11:47] LABS: PCO2 ABG 80.1 mmHg (35.0-45.0)
[2023-10-12] MEDS: FUROSEMIDE INJ 40 MG/4 ML VIAL IV PUSH (12:02)
--- NOTE | 2023-10-12 13:34 | PM.CNCAR ---
Assessment and Plan Assessment and plan (1) Right ventricular enlargement: Code(s): I51.7 - Cardiomegaly Status: Acute Assessment and Plan: Patient has significant right ventricular enlargement and hypokinesis, as well as enlargement of the right atrium. Dont see signs of significant right-sided CHF (no JVD, LE edema). Peak estimated RVSP was only 38 mmHg, but he had only trivial TR so it may be difficult to evaluate the true tricuspid regurgitant velocity. Any case he has at least mild pulmonary hypertension. Suspect the right-sided heart dz is related to COPD, probable ELENA, and perhaps some chronic diastolic heart failure aggravated by an acute pneumonia. No evidence of pulmonary fibrosis, primary pulmonary hypertension, interstitial lung disease, PE to account for this. --counseled pt re: right and left-sided CHF, need for complete tobacco cessation, etc. --encouraged adequate oxygenation, during daytime hours and also HS, may need home CPAP. --encouraged tobacco cessation --continue to treat COPD (2) Acute respiratory failure with hypoxia and hypercapnia: Code(s): J96.01 - Acute respiratory failure with hypoxia; J96.02 - Acute respiratory failure with hypercapnia Status: Acute Assessment and Plan: Acute on chronic respiratory failure secondary to pneumonia and underlying COPD, chronic diastolic heart failure. Improving but still on O2. Treatment per Dr. Bowles (3) Acute diastolic heart failure: Code(s): I50.31 - Acute diastolic (congestive) heart failure Status: Acute Assessment and Plan: Patient had some acute diastolic heart failure most likely related to underlying diastolic dysfunction/HTN, aggravated by his hypoxia and tachycardia. No edema, no chest pain to suggest any angina. --treat underlying lung disease --continue HCTZ and the eplerinone on discharge for diuretic tx --continue treatment for hypertension (4) Hypertension: Code(s): I10 - Essential (primary) hypertension Status: Acute Assessment and Plan: May not have been well controlled as an outpatient. BP was 160/[address] Jaramillo in June although 130/80 when he saw his PCP in August. --continue with amlodipine/valsartan, eplerenone, HCTZ, minoxidil, and follow. (5) Suspected chronic obstructive pulmonary disease based on initial evaluation: Code(s): J44.9 - Chronic obstructive pulmonary disease, unspecified Status: Acute Assessment and Plan: Evaluation treatment per Dr. Bowles (6) Tobacco use: Code(s): Z72.0 - Tobacco use Status: Acute Assessment and Plan: Tobacco cessation strongly encouraged. Patient has tried to quit in the past without success but has friends that have been able to quit. History of Present Illness History of Present Illness Consult date/time: 10/12/23 13:34 Reason For Visit: Pneumonia/Hypoxia/Tachycardia Narrative: Mr. Elías Salazar is a 57-year-old male whom I was asked to see at the request of nurse practitioner Trish Priest for my advice and opinion regarding his right heart failure, in consultation. History of hypertension, hyperlipidemia and tobacco use. Patient had had progressive shortness of breath and productive cough, with fatigue, over the previous week. He presented to the emergency on 10/10/2023 with shortness of breath and congestion, and hypoxia with an O2 saturation of 82%. His initial blood pressure was 92/50 and heart rate was 122. He had hypercarbic respiratory failure. he was started on antibiotics and given a dose of Lasix for possible new onset CHF by chest x-ray and CT (proBNP 6100), but dropped his blood pressure. Chest x-ray shows severe right ventricular enlargement and hypokinesis; RVSP est. 38 mmHg. Normal LV function. CTA showed no PE but possible pneumonia or CHF. He has been seen by Pulmonary, who is treating him for pneumonia and COPD, with antibiotics and AVAPS at night.
--- NOTE | 2023-10-12 15:23 | PM.IMPN ---
Progress Note: A&P Assessment and Plan (1) Acute respiratory failure with hypoxia and hypercapnia: Code(s): J96.01 - Acute respiratory failure with hypoxia; J96.02 - Acute respiratory failure with hypercapnia Status: Acute Assessment and Plan: SpO2 was 82% on room air on arrival to the ED. ABG showed a pH of 7.337, pCO2 55.1, bicarb 28.9. May very well have some component of chronic respiratory failure. Suspected COPD though no official diagnosis. Currently on BiPAP and tolerating well. Repeat ABG this evening, wean as tolerated. 10/11: Dr. Bowles to switch patient to AVAPS, NIPPV had to be restarted due to tachycardia and respiratory distress after exam. 10/12: Tolerated AVAPS mode overnight: rate 10, VTE 500, EPAP 4, minimal inspiratory pressure 5, maximum inspiratory pressure 24, i time 0.9, rise of 1 and 36% fio2. ABG 10/12 this morning after AVAPS mode was ph 7.35/pCO2 80, pO@ 69/HCO3 45.5 Pulmonology to order another ABG for the morning of 10/13 prior to removal of AVAPS. BNP has improved greatly from 6090 to 1040. IVF had been started likely for hypotension. Will stop IVF now and give a dose of Lasix 40 mg IVP to see if this helps with his tachycardia. (2) Multifocal pneumonia: Code(s): J18.9 - Pneumonia, unspecified organism Status: Acute Assessment and Plan: Chest CT showed diffuse patchy nodular bilateral pulmonary infiltrates, likely pneumonia. Continue azithromycin, ceftriaxone, and vancomycin (pending MRSA screen). Send sputum for culture pending. AFB sputum 1 of 3 collected. Check Legionella pneumococcal antigens. Blood cultures NGTD Pulm repeating viral PCR today 10/11: MRSA screen negative, vancomycin discontinued 10/12: Continue with zosyn and azithromycin. Chest XR with bilateral diffuse interstitial alveolar infiltrates with no significant changes from 10/10/23. Holding steroids as he does not have any wheezing at this time. (3) Tobacco dependence: Code(s): F17.200 - Nicotine dependence, unspecified, uncomplicated Status: Acute Assessment and Plan: Smoking cessation is imperative though he is not motivated and declines the need for nicotine patch at this time. (4) Cavitary lesion of lung: Code(s): J98.4 - Other disorders of lung Status: Acute Assessment and Plan: CT scan shows a 1.6 cm cavitary infiltrate in the superior segment of the right lower lobe. Most likely related to pneumonia. Continue follow-up to resolution is recommended to exclude malignancy. 10/11: Pulmonology consulted, appreciate assistance and guidance 10/12: Treating as a cavitary pneumonia and will need 3 weeks of antibiotics per pulmonology. (5) Suspected chronic obstructive pulmonary disease based on initial evaluation: Code(s): J44.9 - Chronic obstructive pulmonary disease, unspecified Status: Acute Assessment and Plan: He is prescribed an inhaler but has never been formally diagnosed with COPD. Continue scheduled bronchodilators and prescribed inhaler. Hold steroids; no bronchospasm on exam at this time. May need home O2 evaluation prior to discharge. Will need formal PFTs as an outpatient. 10/11: Pulmonology consulted, appreciate assistance and guidance (6) Hypertension: Code(s): I10 - Essential (primary) hypertension Status: Acute Assessment and Plan: Blood pressures were reviewed and they have been running at the low end of normal. Hold antihypertensives for now. Continue to monitor blood pressures q.4 hours. (7) Tachycardia: Code(s): R00.0 - Tachycardia, unspecified Status: Acute Assessment and Plan: Likely related work of breathing, hypoxia, and bronchodilators. Developing sepsis is a possibility. Check lactic acid level and TSH. Blood cultures have been ordered. NGTD. ProBNP also elevated, check echocardiogram. Consulted cardiology given ECHO results. Recomme
[2023-10-12] MEDS: AZITHROMYCIN 500 MG/NS 250 ML 500 MG/250 ML BAG 250 MG IVPB (17:08)
[2023-10-13] VITALS (18 sets, daily range): BP systolic 103–144; BP diastolic 66–87; PULSE 75–99; RESP 20–24; TEMP 36.1–36.8; O2SAT 94–100
[2023-10-13] MEDS: PIPERACILLN/TAZ 3.375GM/NS50ML 3.375 GM/50 ML BAG IVPB ×4 (05:18→23:54)
[2023-10-13] MEDS: SODIUM CHLOR 3% 15 ML NEB (RESPIRATORY THERAPY) 6 ML INHALATION (05:23)
[2023-10-13 05:35] LABS: Basophils Absolute Auto 0.1 K/mm3 (0.0-0.1); Basophils Percent Auto 0.5 % (0.2-1.2); Eosinophils Absolute Auto 0.2 K/mm3 (0-0.3); Eosinophils Percent Auto 1.4 % (0-4.4); Hematocrit 38.3 % (42.0-52.0); Immature Granulocyte Absolute 0.32 K/mm3 (0.00-0.031); Immature Granulocyte Percent A 2.3 % (0-0.5); Lymphocytes Absolute Auto 2.04 K/mm3 (0.9-3.2); Lymphocytes Percent Auto 14.4 % (18.3-44.2); Mean Corpuscular HGB Conc 31.3 g/dl (32-36); Mean Corpuscular Hemoglobin 31.7 pg (26-34); Mean Corpuscular Volume 101.1 fl (80-100); Mean Platelet Volume 8.1 fl (7.4-10.4); Monocytes Absolute Auto 1.5 K/mm3 (0.1-0.6); Monocytes Percent Auto 10.6 % (2.6-8.5); Neutrophils Percent Auto 70.8 % (45.5-73.1); Platelet Count Result 272 k/mm3 (150-375); Red Blood Count 3.79 M/mm3 (4.6-6.20); Red Cell Distribution Width 13.2 % (11.5-14.5); White Blood Count 14.1 K/mm3 (4.5-10.0)
[2023-10-13 05:37] LABS: Alveolar/Arterial O2 Gradient 97.2 mmHg; Base Excess ABG 17.1 mEq/l (+/-2.0); Fractional Inspired Oxygen 36 %; HCO3 ABG 46.4 mEq/l (22.0-26.0); Oxygen Saturation ABG 93.8 % (95.0-100.0); Oxyhemoglobin 92.9 % THb (90.0-100.0); PO2 ABG 71.9 mmHg (80.0-100.0); Total Hemoglobin 15.3 g/dL (12.0-18.0); pH ABG 7.406 (7.350-7.450)
[2023-10-13 05:57] LABS: Modified Allen's Test Pass; PCO2 ABG 75.5 mmHg (35.0-45.0); Site Drawn RIGHT RADIAL
[2023-10-13 05:58] LABS: Device BIPAP
[2023-10-13 06:12] LABS: Alanine Aminotransferase 80 U/L (6-50); Albumin Level 3.5 g/dL (3.5-5.1); Alkaline Phosphatase 59 U/L (38-126); Aspartate Amino Transferase 34 U/L (17-59); Bilirubin,Total 0.5 mg/dL (0.2-1.3); Blood Urea Nitrogen 17 mg/dL (9-20); Calcium 8.8 mg/dL (8.4-10.2); Carbon Dioxide > 40 mmol/L (22-30); Chloride 93 mmol/L (98-107); Estimated CRCL calculation 147 ml/min; Estimated Glomerular Filt Rate > 60; Glucose 124 mg/dL (65-110); Magnesium 2.3 mg/dL (1.6-2.3); Potassium 3.8 mmol/L (3.4-5.0); Sodium 141 mmol/L (137-145)
[2023-10-13 06:30] LABS: Expiratory Pressure 4 cmH2O
[2023-10-13] MEDS: LEVALBUTEROL NEB 1.25 MG/3 ML 0.63 MG INHALATION ×3 (08:37→20:09)
[2023-10-13] MEDS: IPRATROPIUM BR 0.02% INH SOLN 0.5 MG/2.5 ML VIAL INHALATION ×3 (08:38→20:09)
--- NOTE | 2023-10-13 08:47 | PM.PNPUL ---
Progress Note: A&P Assessment and Plan (1) COPD (chronic obstructive pulmonary disease): Code(s): J44.9 - Chronic obstructive pulmonary disease, unspecified Status: Acute Assessment and Plan: Patient carries a diagnosis of COPD. Patient with 42 pack year history tobacco use, currently smoking 1 pack per day prior to admission. I have no PFTs. CT scan of the chest shows no bullous emphysema. Home medications include Anoro Ellipta. At baseline he has 2 block dyspnea on exertion. Eosinophils on admission was 113 per micro L. he has hypoxic respiratory failure. He has evidence of right ventricular failure with an enlarged right ventricle, moderately enlarged right atrium decreased right ventricular function and a PASP of 38. The patient has COPD with chronic hypercarbic respiratory failure with blood gas on 10/10/2023 of 7.34/55/56 and a serum bicarbonate of 35. The patient would benefit from noninvasive ventilation to prevent further hospitalizations and deteriorations of his lung condition. The patient was initially placed on BiPAP but stated the pressures were uncomfortable and he could not breathe with the machine. I changed the patient to noninvasive ventilation with the AVAPS mode and he tolerates this well. 10/13/23: The patient has no wheezing today. I do not feel he is having a COPD exacerbation at this time. Plan: I will continue levalbuterol and ipratropium nebulizers. He has no active wheezing and I will not initiate inhaled corticosteroids or systemic corticosteroids. I will initiate the process for home noninvasive and invasive ventilation with the AVAPS mode. His current settings of AVAPS, rate of 20, tidal volume 500, EPAP 4, minimal inspiratory pressure 5, maximal inspiratory pressure 25, inspiratory time 0.9 seconds and rise of 1 which is are fast as with 36% FiO2 provide adequate oxygenation and ventilation. (2) Respiratory failure with hypoxia and hypercapnia: Code(s): J96.91 - Respiratory failure, unspecified with hypoxia; J96.92 - Respiratory failure, unspecified with hypercapnia Status: Acute Assessment and Plan: 10/11 Patient carries a diagnosis of COPD and presented with an ABG demonstrated hypercarbic respiratory failure with a PaCO2 of 55. His serum bicarbonate was 35. The patient has COPD with chronic hypercarbic respiratory failure with blood gas on 10/10/2023 of 7.34/55/56 and a serum bicarbonate of 35. The patient would benefit from noninvasive ventilation to prevent further hospitalizations and deteriorations of his lung condition. The patient was initially placed on BiPAP but stated the pressures were uncomfortable and he could not breathe with the machine. I changed the patient to noninvasive ventilation with the AVAPS mode and he tolerates this well. Plan: The patient said the BiPAP was uncomfortable and he could not tolerate the BiPAP mode and I switched him to an AVAPS mode and adjusted the settings to comfort resulting in a rate of 10, tidal volume 500, EPAP 4, minimal inspiratory pressure 5, maximal inspiratory pressure 25, inspiratory time 0.9, rise of 1 which is are fastest and 36%. I will order an overnight oximetry on these settings and a ABG prior to removal. I will repeated ABG later during this hospitalization after he has clinically improved to determine if he has chronic hypercarbic respiratory failure. Later in the day echocardiogram with normal LVEF, grade 1 diastolic dysfunction, severely decreased right ventricular function with severe enlargement. Moderate enlargement right atrium, negative bubble study, PASP 38 10/12: The patient tells me he wore the hospital noninvasive ventilator with the AVAPS mode 36% last night. Overnight oximetry on AVAPS with 36% FiO2 with recording duration of 8 hours and 27 minutes. Average saturation 96%. Low saturation 85%. Time with saturation less than or equal to 88% was 1 minute. Oxygen desaturation index is 2.9. Suleman
--- NOTE | 2023-10-13 09:23 | PM.IMPN ---
Progress Note: A&P Assessment and Plan (1) Acute respiratory failure with hypoxia and hypercapnia: Code(s): J96.01 - Acute respiratory failure with hypoxia; J96.02 - Acute respiratory failure with hypercapnia Status: Acute Assessment and Plan: SpO2 was 82% on room air on arrival to the ED. ABG showed a pH of 7.337, pCO2 55.1, bicarb 28.9. May very well have some component of chronic respiratory failure. Suspected COPD though no official diagnosis. Currently on BiPAP and tolerating well. Repeat ABG this evening, wean as tolerated. 10/11: Dr. Bowles to switch patient to AVAPS, NIPPV had to be restarted due to tachycardia and respiratory distress after exam. 10/12: Tolerated AVAPS mode overnight: rate 10, VTE 500, EPAP 4, minimal inspiratory pressure 5, maximum inspiratory pressure 24, i time 0.9, rise of 1 and 36% fio2. ABG 10/12 this morning after AVAPS mode was ph 7.35/pCO2 80, pO@ 69/HCO3 45.5 Pulmonology to order another ABG for the morning of 10/13 prior to removal of AVAPS. BNP has improved greatly from 6090 to 1040. IVF had been started likely for hypotension. Will stop IVF now and give a dose of Lasix 40 mg IVP to see if this helps with his tachycardia. 10/13: Improving. Now on 3 L nc. Continue to wean as tolerated. Pulmonology is ordering NIV for home use. (2) Multifocal pneumonia: Code(s): J18.9 - Pneumonia, unspecified organism Status: Acute Assessment and Plan: Chest CT showed diffuse patchy nodular bilateral pulmonary infiltrates, likely pneumonia. Continue azithromycin, ceftriaxone, and vancomycin (pending MRSA screen). Send sputum for culture pending. AFB sputum 1 of 3 collected. Check Legionella pneumococcal antigens. Blood cultures NGTD Pulm repeating viral PCR today 10/11: MRSA screen negative, vancomycin discontinued 10/12: Continue with zosyn and azithromycin. Chest XR with bilateral diffuse interstitial alveolar infiltrates with no significant changes from 10/10/23. Holding steroids as he does not have any wheezing at this time. 10/13: Continue with IV abx today. Mild increase in WBC. (3) Tobacco dependence: Code(s): F17.200 - Nicotine dependence, unspecified, uncomplicated Status: Acute Assessment and Plan: Smoking cessation is imperative though he is not motivated and declines the need for nicotine patch at this time. (4) Cavitary lesion of lung: Code(s): J98.4 - Other disorders of lung Status: Acute Assessment and Plan: CT scan shows a 1.6 cm cavitary infiltrate in the superior segment of the right lower lobe. Most likely related to pneumonia. Continue follow-up to resolution is recommended to exclude malignancy. 10/11: Pulmonology consulted, appreciate assistance and guidance 10/12: Treating as a cavitary pneumonia and will need 3 weeks of antibiotics per pulmonology. (5) Suspected chronic obstructive pulmonary disease based on initial evaluation: Code(s): J44.9 - Chronic obstructive pulmonary disease, unspecified Status: Acute Assessment and Plan: He is prescribed an inhaler but has never been formally diagnosed with COPD. Continue scheduled bronchodilators and prescribed inhaler. Hold steroids; no bronchospasm on exam at this time. May need home O2 evaluation prior to discharge. Will need formal PFTs as an outpatient. 10/11: Pulmonology consulted, appreciate assistance and guidance (6) Hypertension: Code(s): I10 - Essential (primary) hypertension Status: Acute Assessment and Plan: Blood pressures were reviewed and they have been running at the low end of normal. Hold antihypertensives for now. Continue to monitor blood pressures q.4 hours. No changes to medications recommended by cardiology. Continue with amlodipine/valsartan, eplerenone, HCTZ, minoxidil, when appropriate. Follow up with cards at d/c. They are recommending outpatient sleep study. Continue to cou
[2023-10-13] MEDS: ENOXAPARIN 40 MG/0.4 ML SYRINGE SUB-Q (09:53)
[2023-10-13] MEDS: LORATADINE 10 MG TABLET PO (09:53)
[2023-10-13] MEDS: ATORVASTATIN 20 MG TABLET PO (09:53)
[2023-10-13] MEDS: guaiFENesin 12 HR 600 MG TABCR PO ×2 (09:53→21:08)
--- NOTE | 2023-10-13 10:13 | PM.PNCARD ---
Progress Note: A&P Assessment and Plan (1) Right ventricular enlargement: Code(s): I51.7 - Cardiomegaly Status: Acute Assessment and Plan: Patient has significant right ventricular enlargement and hypokinesis, as well as enlargement of the right atrium. He also has at least mild pulmonary hypertension. --counseled pt re: right and left-sided CHF, need for complete tobacco cessation, etc. --Adequate oxygenation with supplemental O2 --Outpatient sleep study --encouraged tobacco cessation --continue to treat COPD Cardiology will sign off. Please call with any questions. (2) Acute respiratory failure with hypoxia and hypercapnia: Code(s): J96.01 - Acute respiratory failure with hypoxia; J96.02 - Acute respiratory failure with hypercapnia Status: Acute Assessment and Plan: Acute on chronic respiratory failure secondary to pneumonia and underlying COPD, chronic diastolic heart failure. Improving but still on O2. Treatment per Dr. Bowles (3) Acute diastolic heart failure: Code(s): I50.31 - Acute diastolic (congestive) heart failure Status: Acute Assessment and Plan: Patient had some acute diastolic heart failure most likely related to underlying diastolic dysfunction/HTN, aggravated by his hypoxia and tachycardia. No edema, no chest pain to suggest any angina. --treat underlying lung disease --continue HCTZ and the eplerinone on discharge for diuretic tx --continue treatment for hypertension --Will arrange outpatient follow up in our office. (4) Hypertension: Code(s): I10 - Essential (primary) hypertension Status: Acute Assessment and Plan: May not have been well controlled as an outpatient. BP was 160/[address] Jaramillo in June although 130/80 when he saw his PCP in August. --continue with amlodipine/valsartan, eplerenone, HCTZ, minoxidil, and follow. (5) Suspected chronic obstructive pulmonary disease based on initial evaluation: Code(s): J44.9 - Chronic obstructive pulmonary disease, unspecified Status: Acute Assessment and Plan: Evaluation treatment per Dr. Bowles (6) Tobacco use: Code(s): Z72.0 - Tobacco use Status: Acute Assessment and Plan: Tobacco cessation strongly encouraged. Patient has tried to quit in the past without success but has friends that have been able to quit. Subjective Date/time seen: 10/13/23 10:13 Interval history: Cardiology follow up for CHF Feeling okay today, breathing is about the same, perhaps slightly better. Still coughing up phlegm. Review of Systems Review of Systems: All systems reviewed & are unremarkable except as noted in HPI and below Exam Const: General: cooperative and comfortable; No healthy appearing or confusion Orientation/consciousness: oriented to person, patient oriented x3 and No confusion HENMT: Mouth: Yes moist mucous membranes Eyes: General: appearance normal, both eyes and all related structures EOM: EOMs intact bilaterally Neck: Neck: supple and no JVD Thyroid: thyroid normal Carotids: no bruits Resp: Effort & Inspection: normal respiratory effort Auscultation: rhonchi throughout Cardio: Rate: regular rate Rhythm: regular rhythm Heart sounds: Murmur heart sound present (1-2/6 LISA left lower sternal border) GI: Inspection: normal to inspection Skin: General skin exam: normal color and no rashes or lesions noted Neuro: General: oriented to person, patient oriented x3 and No confusion Extrem: Right lower extremity: no edema Left lower extremity: no edema Psych: Appearance: grossly normal Mental Status: mental status grossly normal Objective Data Vital Signs Vital Signs: Vital Signs - 24 hr 10/12/23 11:57 10/12/23 12:00 10/12/23 12:00 Temperature 36.2 C L Pulse Rate 108 H 108 H Respiratory Rate 97 H Blood Pressure 106/62 Pulse Oximetry 91 96 Oxygen Delivery Nasal Cannula Oxyg
[2023-10-13] MEDS: AZITHROMYCIN 500 MG/NS 250 ML 500 MG/250 ML BAG 250 MG IVPB (17:24)
[2023-10-13 17:47] LABS: Mycoplasma IgM Antibody Titer 396 U/mL (<770)
--- NOTE | 2023-10-13 18:17 | PC.NURSE ---
This patient, Elías Tyrell Salazar, was transferred to [ 300] on 10/13/23 at 1817. Personal belongings sent with patient. Report given to [EMBER Posadas @ 1818 ]. Appropriate documentation sent with patient.
[2023-10-13] MEDS: LEVALBUTEROL NEB 1.25 MG/3 ML (20:09)
[2023-10-13 23:19] LABS: Pneumococcal Antigen Urine Not Detected (Not Detected)
[2023-10-14] VITALS (20 sets, daily range): BP systolic 139–165; BP diastolic 85–86; PULSE 78–123; RESP 18–20; TEMP 36–36.8; O2SAT 85–97
[2023-10-14] MEDS: LEVALBUTEROL NEB 1.25 MG/3 ML 0.63 MG INHALATION ×2 (02:49→07:20)
[2023-10-14] MEDS: IPRATROPIUM BR 0.02% INH SOLN 0.5 MG/2.5 ML VIAL INHALATION ×2 (02:49→07:20)
[2023-10-14] MEDS: SODIUM CHLOR 3% 15 ML NEB (RESPIRATORY THERAPY) 6 ML INHALATION (05:21)
[2023-10-14] MEDS: PIPERACILLN/TAZ 3.375GM/NS50ML 3.375 GM/50 ML BAG IVPB ×3 (05:34→16:58)
[2023-10-14 07:15] LABS: Basophils Absolute Auto 0.1 K/mm3 (0.0-0.1); Basophils Percent Auto 0.7 % (0.2-1.2); Eosinophils Absolute Auto 0.3 K/mm3 (0-0.3); Eosinophils Percent Auto 2.1 % (0-4.4); Hemoglobin 13.1 g/dL (14.0-18.0); Immature Granulocyte Absolute 0.29 K/mm3 (0.00-0.031); Immature Granulocyte Percent A 2.4 % (0-0.5); Lymphocytes Absolute Auto 1.75 K/mm3 (0.9-3.2); Lymphocytes Percent Auto 14.4 % (18.3-44.2); Mean Corpuscular HGB Conc 31.2 g/dl (32-36); Mean Corpuscular Hemoglobin 31.4 pg (26-34); Mean Corpuscular Volume 100.7 fl (80-100); Mean Platelet Volume 8.3 fl (7.4-10.4); Monocytes Absolute Auto 1.2 K/mm3 (0.1-0.6); Monocytes Percent Auto 9.8 % (2.6-8.5); Neutrophils Absolute Auto 8.6 K/mm3 (1.3-6.7); Neutrophils Percent Auto 70.6 % (45.5-73.1); Platelet Count Result 284 k/mm3 (150-375); Red Blood Count 4.17 M/mm3 (4.6-6.20); White Blood Count 12.2 K/mm3 (4.5-10.0)
--- NOTE | 2023-10-14 07:23 | PM.IMPN ---
Progress Note: A&P Assessment and Plan (1) Acute respiratory failure with hypoxia and hypercapnia: Code(s): J96.01 - Acute respiratory failure with hypoxia; J96.02 - Acute respiratory failure with hypercapnia Status: Acute Assessment and Plan: SpO2 was 82% on room air on arrival to the ED. ABG showed a pH of 7.337, pCO2 55.1, bicarb 28.9. May very well have some component of chronic respiratory failure. Suspected COPD though no official diagnosis. Currently on BiPAP and tolerating well. Repeat ABG this evening, wean as tolerated. 10/11: Dr. Bowles to switch patient to AVAPS, NIPPV had to be restarted due to tachycardia and respiratory distress after exam. 10/12: Tolerated AVAPS mode overnight: rate 10, VTE 500, EPAP 4, minimal inspiratory pressure 5, maximum inspiratory pressure 24, i time 0.9, rise of 1 and 36% fio2. ABG 10/12 this morning after AVAPS mode was ph 7.35/pCO2 80, pO@ 69/HCO3 45.5 Pulmonology to order another ABG for the morning of 10/13 prior to removal of AVAPS. BNP has improved greatly from 6090 to 1040. IVF had been started likely for hypotension. Will stop IVF now and give a dose of Lasix 40 mg IVP to see if this helps with his tachycardia. 10/13: Improving. Now on 3 L nc. Continue to wean as tolerated. Pulmonology is ordering NIV for home use. 10/14: Stable oxygenation - bedside oximetry test per pulm today with desats to 89%. A home o2 plan is being arranged. Additionally will need noninvasive ventilation at night - this is being arranged by pulm . Patient appears euvolemic on exam. (2) Multifocal pneumonia: Code(s): J18.9 - Pneumonia, unspecified organism Status: Acute Assessment and Plan: Chest CT showed diffuse patchy nodular bilateral pulmonary infiltrates, likely pneumonia. Continue azithromycin, ceftriaxone, and vancomycin (pending MRSA screen). Send sputum for culture pending. AFB sputum 1 of 3 collected. Check Legionella pneumococcal antigens. Blood cultures NGTD Pulm repeating viral PCR today 10/11: MRSA screen negative, vancomycin discontinued 10/12: Continue with zosyn and azithromycin. Chest XR with bilateral diffuse interstitial alveolar infiltrates with no significant changes from 10/10/23. Holding steroids as he does not have any wheezing at this time. 10/13: Continue with IV abx today. Mild increase in WBC. 10/14: Expect 6 weeks augmentin on discharge. There is a plethora of additional testing that is pending and I have discussed with pulmonology today. They will be continuing to follow on discharge. Of note, afb and sputum cx tests are pending and will likely be some time before full results are available of this testing. (3) Tobacco dependence: Code(s): F17.200 - Nicotine dependence, unspecified, uncomplicated Status: Acute Assessment and Plan: Smoking cessation is imperative though he is not motivated and declines the need for nicotine patch at this time. 10/14: Stable. (4) Cavitary lesion of lung: Code(s): J98.4 - Other disorders of lung Status: Acute Assessment and Plan: CT scan shows a 1.6 cm cavitary infiltrate in the superior segment of the right lower lobe. Most likely related to pneumonia. Continue follow-up to resolution is recommended to exclude malignancy. 10/11: Pulmonology consulted, appreciate assistance and guidance 10/12: Treating as a cavitary pneumonia and will need 3 weeks of antibiotics per pulmonology. 10/14: Per Dr. Bowles likely 6 weeks of augmentin post discharge with approx 3 week o/p f/u. (5) Suspected chronic obstructive pulmonary disease based on initial evaluation: Code(s): J44.9 - Chronic obstructive pulmonary disease, unspecified Status: Acute Assessment and Plan: He is prescribed an inhaler but has never been formally diagnosed with COPD. Continue scheduled bronchodilators and prescribed inhaler. Hold steroids; no bronchospasm on exam
[2023-10-14 07:28] LABS: Alanine Aminotransferase 72 U/L (6-50); Albumin Level 3.8 g/dL (3.5-5.1); Alkaline Phosphatase 61 U/L (38-126); Aspartate Amino Transferase 29 U/L (17-59); Bilirubin,Total 0.5 mg/dL (0.2-1.3); Blood Urea Nitrogen 15 mg/dL (9-20); Calcium 9.3 mg/dL (8.4-10.2); Carbon Dioxide > 40 mmol/L (22-30); Chloride 95 mmol/L (98-107); Estimated CRCL calculation 109 ml/min; Estimated Glomerular Filt Rate > 60; Glucose 114 mg/dL (65-110); Magnesium 2.2 mg/dL (1.6-2.3); Potassium 4.1 mmol/L (3.4-5.0); Sodium 140 mmol/L (137-145)
--- NOTE | 2023-10-14 08:10 | PM.PNPUL ---
Progress Note: A&P Assessment and Plan (1) COPD (chronic obstructive pulmonary disease): Code(s): J44.9 - Chronic obstructive pulmonary disease, unspecified Status: Acute Assessment and Plan: Patient carries a diagnosis of COPD. Patient with 42 pack year history tobacco use, currently smoking 1 pack per day prior to admission. I have no PFTs. CT scan of the chest shows no bullous emphysema. Home medications include Anoro Ellipta. At baseline he has 2 block dyspnea on exertion. Eosinophils on admission was 113 per micro L. he has hypoxic respiratory failure. He has evidence of right ventricular failure with an enlarged right ventricle, moderately enlarged right atrium decreased right ventricular function and a PASP of 38. The patient has COPD with chronic hypercarbic respiratory failure with blood gas on 10/10/2023 of 7.34/55/56 and a serum bicarbonate of 35. The patient would benefit from noninvasive ventilation to prevent further hospitalizations and deteriorations of his lung condition. BiPAP ST AVAPS was ruled out because patient would benefit from noninvasive ventilation with AVAPS AE with alarms. The patient was initially placed on BiPAP but stated the pressures were uncomfortable and he could not breathe with the machine. I changed the patient to noninvasive ventilation with the AVAPS mode and he tolerates this well. 10/13/23: The patient has no wheezing today. I do not feel he is having a COPD exacerbation at this time. Plan: I will continue levalbuterol and ipratropium nebulizers. He has no active wheezing and I will not initiate inhaled corticosteroids or systemic corticosteroids. I will initiate the process for home noninvasive and invasive ventilation with the AVAPS mode. His current settings of AVAPS, rate of 20, tidal volume 500, EPAP 4, minimal inspiratory pressure 5, maximal inspiratory pressure 25, inspiratory time 0.9 seconds and rise of 1 which is are fast as with 36% FiO2 provide adequate oxygenation and ventilation. 10/14: Patient continues to improve. He has no wheezing.. He has been walking in the room. Currently is on 3 L nasal cannula saturation 94%. I turned him to room air and over the next 2 minutes he desaturated to 89% and I placed him back on 3 L. he is afebrile. Plan: I will discontinue his nebulized levalbuterol and ipratropium. I will place him on Anoro Ellipta 62.5-25 at 1 puff q.day. I will order a home O2 assessment today in anticipation of discharge soon. Smoking cessation counseling was provided and the patient feels he will be able to remain tobacco free when he goes home. Will follow with you. (2) Respiratory failure with hypoxia and hypercapnia: Code(s): J96.91 - Respiratory failure, unspecified with hypoxia; J96.92 - Respiratory failure, unspecified with hypercapnia Status: Acute Assessment and Plan: 10/11 Patient carries a diagnosis of COPD and presented with an ABG demonstrated hypercarbic respiratory failure with a PaCO2 of 55. His serum bicarbonate was 35. The patient has COPD with chronic hypercarbic respiratory failure with blood gas on 10/10/2023 of 7.34/55/56 and a serum bicarbonate of 35. The patient would benefit from noninvasive ventilation to prevent further hospitalizations and deteriorations of his lung condition. BiPAP ST AVAPS was ruled out because patient would benefit from noninvasive ventilation with AVAPS AE with alarms. The patient was initially placed on BiPAP but stated the pressures were uncomfortable and he could not breathe with the machine. I changed the patient to noninvasive ventilation with the AVAPS mode and he tolerates this well. Plan: The patient said the BiPAP was uncomfortable and he could not tolerate the BiPAP mode and I switched him to an AVAPS mode and adjusted the settings to comfort resulting in a rate of 10, tidal volume 500, EPAP 4, minimal inspiratory pressure 5, maximal inspiratory pressure 25, inspiratory
[2023-10-14] MEDS: ENOXAPARIN 40 MG/0.4 ML SYRINGE SUB-Q (08:18)
[2023-10-14] MEDS: LORATADINE 10 MG TABLET PO (08:18)
[2023-10-14] MEDS: ATORVASTATIN 20 MG TABLET PO (08:18)
[2023-10-14] MEDS: guaiFENesin 12 HR 600 MG TABCR PO ×2 (08:18→20:42)
--- NOTE | 2023-10-14 11:17 | PCRCNOTE ---
HOME OXYGEN AT 3L AT REST AND 5L WITH ACTIVITY. SET UP WITH [facility]. PHONE NUMBER [phone]. TANK IN ROOM FOR DISCHARGE.
--- NOTE | 2023-10-14 11:35 | HOMEO2EVAL ---
Evaluation was performed at [facility] Home Oxygen Evaluation RC: Home Oxygen (O2) Evaluation Start: 10/14/23 08:08 Freq: ONCE Status: Active Protocol: RPE Activity Type Activity Date Activity User E-sign Co-sign Detail Recorded Client Recorded Date Recorded By Document 10/14/23 10:30 [email or web address] [email or web address] 10/14/23 11:12 DJO Document 10/14/23 10:35 [email or web address] [email or web address] 10/14/23 11:12 DJO Document 10/14/23 10:40 [email or web address] [email or web address] 10/14/23 11:12 DJO Document 10/14/23 10:45 [email or web address] [email or web address] 10/14/23 11:12 DJO Document 10/14/23 10:50 [email or web address] [email or web address] 10/14/23 11:12 DJO Document 10/14/23 10:50 [email or web address] [email or web address] 10/14/23 11:12 DJO Document 10/14/23 10:55 [email or web address] [email or web address] 10/14/23 11:12 DJO Document 10/14/23 11:10 [email or web address] [email or web address] 10/14/23 11:12 DJO 10/14/23 10/14/23 10/14/23 10:30 10:35 10:40 Home O2 Evaluation [Oxygen] -Test Phase Resting Resting Resting -Oxygen Delivery Room Air Nasal Cannula Nasal Cannula -Oxygen Flow Rate (L/min) 1 2 [Pulse Oximetry] -Pulse Oximetry (90-100 %) 85 L 86 L 88 L [Pulse Rate] -Pulse Rate (60-100 beats/min) 94 92 91 [Evaluation] -Activity Tolerance [Charges] -Treatment Charges O2 Evaluation - Inpatient 10/14/23 10/14/23 10/14/23 10:45 10:50 10:50 Home O2 Evaluation [Oxygen] -Test Phase Resting Exercise Exercise -Oxygen Delivery Nasal Cannula Nasal Cannula Nasal Cannula -Oxygen Flow Rate (L/min) 3 3 4 [Pulse Oximetry] -Pulse Oximetry (90-100 %) 91 86 L 88 L [Pulse Rate] -Pulse Rate (60-100 beats/min) 90 120 H 122 H [Evaluation] -Activity Tolerance [Charges] -Treatment Charges 10/14/23 10/14/23 10:55 11:10 Home O2 Evaluation [Oxygen] -Test Phase Exercise Resting -Oxygen Delivery Nasal Cannula Nasal Cannula -Oxygen Flow Rate (L/min) 5 3 [Pulse Oximetry] -Pulse Oximetry (90-100 %) 91 91 [Pulse Rate] -Pulse Rate (60-100 beats/min) 123 H 90 [Evaluation] -Activity Tolerance Good [Charges] -Treatment Charges
--- NOTE | 2023-10-14 13:50 | PCRCNOTE ---
HOME O2 AND HOME TRILOGY UNIT DME: [facility], CONTACT #[id number] [phone] RT FROM THE DME COMPANY WILL BE IN TODAY FOR SET UP OF TRILOGY UNIT, HE WILL TAKE THIS UNIT HOME WITH HIM AT D/C. WELL O2 TANK FOR TRANSPORT HOME. ONCE HOME, [facility] WILL COMPLETE O2 SET UP AND ENSURE TRILOGY UNIT IS SET UP IN HOME PROPERLY.
[2023-10-14] MEDS: AZITHROMYCIN 500 MG/NS 250 ML 500 MG/250 ML BAG 250 MG IVPB (15:59)
[2023-10-14 22:28] LABS: ANCA Screen Negative (Negative)
[2023-10-14 23:24] LABS: Legionella pneumophila Ag Ur Not Detected (Not Detected)
[2023-10-15] MEDS: PIPERACILLN/TAZ 3.375GM/NS50ML 3.375 GM/50 ML BAG IVPB ×3 (00:30→11:26)
[2023-10-15 05:01] LABS: Alveolar/Arterial O2 Gradient 118.2 mmHg; Base Excess ABG 7.2 mEq/l (+/-2.0); Fractional Inspired Oxygen 36 %; HCO3 ABG 33.2 mEq/l (22.0-26.0); Oxygen Content ABG 16.2 %vol (16.0-22.0); Oxygen Saturation ABG 95.2 % (95.0-100.0); Oxyhemoglobin 92.7 % THb (90.0-100.0); PCO2 ABG 53.4 mmHg (35.0-45.0); PO2 ABG 76.5 mmHg (80.0-100.0); PO2 FiO2 Ratio Arterial Blood 2.13 %; Total Hemoglobin 12.4 g/dL (12.0-18.0); pH ABG 7.412 (7.350-7.450)
[2023-10-15 05:02] LABS: Modified Allen's Test Pass; Site Drawn RIGHT RADIAL
[2023-10-15 05:04] LABS: Device OTHER DEVICE
[2023-10-15 05:54] VITALS: BP 184/94
[2023-10-15 06:00] VITALS: BP 184/94; PULSE 78; RESP 20; TEMP 36; O2SAT 95
[2023-10-15] MEDS: amLODIPine BESYLATE 5 MG TABLET 10 MG PO (06:01)
[2023-10-15 07:03] LABS: Basophils Absolute Auto 0.1 K/mm3 (0.0-0.1); Basophils Percent Auto 0.7 % (0.2-1.2); Eosinophils Absolute Auto 0.3 K/mm3 (0-0.3); Eosinophils Percent Auto 2.6 % (0-4.4); Hemoglobin 12.6 g/dL (14.0-18.0); Immature Granulocyte Absolute 0.21 K/mm3 (0.00-0.031); Lymphocytes Absolute Auto 1.45 K/mm3 (0.9-3.2); Lymphocytes Percent Auto 13.9 % (18.3-44.2); Mean Corpuscular HGB Conc 31.5 g/dl (32-36); Mean Corpuscular Hemoglobin 31.2 pg (26-34); Mean Platelet Volume 8.2 fl (7.4-10.4); Monocytes Absolute Auto 1.1 K/mm3 (0.1-0.6); Monocytes Percent Auto 10.2 % (2.6-8.5); Neutrophils Absolute Auto 7.4 K/mm3 (1.3-6.7); Neutrophils Percent Auto 70.6 % (45.5-73.1); Platelet Count Result 268 k/mm3 (150-375); Red Blood Count 4.04 M/mm3 (4.6-6.20); Red Cell Distribution Width 12.8 % (11.5-14.5); White Blood Count 10.4 K/mm3 (4.5-10.0)
[2023-10-15 07:09] LABS: Alanine Aminotransferase 69 U/L (6-50); Albumin Level 3.6 g/dL (3.5-5.1); Alkaline Phosphatase 55 U/L (38-126); Anion Gap 5 mmol/L (8-16); Aspartate Amino Transferase 28 U/L (17-59); Bilirubin,Total 0.6 mg/dL (0.2-1.3); Blood Urea Nitrogen 15 mg/dL (9-20); Calcium 9.5 mg/dL (8.4-10.2); Carbon Dioxide 38 mmol/L (22-30); Chloride 96 mmol/L (98-107); Estimated CRCL calculation 125 ml/min; Estimated Glomerular Filt Rate > 60; Glucose 111 mg/dL (65-110); Magnesium 2.1 mg/dL (1.6-2.3); Sodium 139 mmol/L (137-145)
--- NOTE | 2023-10-15 07:17 | PM.IMPN ---
Progress Note: A&P Assessment and Plan (1) Acute respiratory failure with hypoxia and hypercapnia: Code(s): J96.01 - Acute respiratory failure with hypoxia; J96.02 - Acute respiratory failure with hypercapnia Status: Acute Assessment and Plan: SpO2 was 82% on room air on arrival to the ED. ABG showed a pH of 7.337, pCO2 55.1, bicarb 28.9. May very well have some component of chronic respiratory failure. Suspected COPD though no official diagnosis. Currently on BiPAP and tolerating well. Repeat ABG this evening, wean as tolerated. 10/11: Dr. Bowles to switch patient to AVAPS, NIPPV had to be restarted due to tachycardia and respiratory distress after exam. 10/12: Tolerated AVAPS mode overnight: rate 10, VTE 500, EPAP 4, minimal inspiratory pressure 5, maximum inspiratory pressure 24, i time 0.9, rise of 1 and 36% fio2. ABG 10/12 this morning after AVAPS mode was ph 7.35/pCO2 80, pO@ 69/HCO3 45.5 Pulmonology to order another ABG for the morning of 10/13 prior to removal of AVAPS. BNP has improved greatly from 6090 to 1040. IVF had been started likely for hypotension. Will stop IVF now and give a dose of Lasix 40 mg IVP to see if this helps with his tachycardia. 10/13: Improving. Now on 3 L nc. Continue to wean as tolerated. Pulmonology is ordering NIV for home use. 10/14: Stable oxygenation - bedside oximetry test per pulm today with desats to 89%. A home o2 plan is being arranged. Additionally will need noninvasive ventilation at night - this is being arranged by pulm . Patient appears euvolemic on exam. 10/15: 3 L nc at rest and 5 L nc with activity. (2) Multifocal pneumonia: Code(s): J18.9 - Pneumonia, unspecified organism Status: Acute Assessment and Plan: Chest CT showed diffuse patchy nodular bilateral pulmonary infiltrates, likely pneumonia. Continue azithromycin, ceftriaxone, and vancomycin (pending MRSA screen). Send sputum for culture pending. AFB sputum 1 of 3 collected. Check Legionella pneumococcal antigens. Blood cultures NGTD Pulm repeating viral PCR today 10/11: MRSA screen negative, vancomycin discontinued 10/12: Continue with zosyn and azithromycin. Chest XR with bilateral diffuse interstitial alveolar infiltrates with no significant changes from 10/10/23. Holding steroids as he does not have any wheezing at this time. 10/13: Continue with IV abx today. Mild increase in WBC. 10/14: Expect 6 weeks Augmentin on discharge. There is a plethora of additional testing that is pending and I have discussed with pulmonology today. They will be continuing to follow on discharge. Of note, afb and sputum cx tests are pending and will likely be some time before full results are available of this testing. (3) Tobacco dependence: Code(s): F17.200 - Nicotine dependence, unspecified, uncomplicated Status: Acute Assessment and Plan: Smoking cessation is imperative though he is not motivated and declines the need for nicotine patch at this time. 10/14: Stable. (4) Cavitary lesion of lung: Code(s): J98.4 - Other disorders of lung Status: Acute Assessment and Plan: CT scan shows a 1.6 cm cavitary infiltrate in the superior segment of the right lower lobe. Most likely related to pneumonia. Continue follow-up to resolution is recommended to exclude malignancy. 10/11: Pulmonology consulted, appreciate assistance and guidance 10/12: Treating as a cavitary pneumonia and will need 3 weeks of antibiotics per pulmonology. 10/14: Per Dr. Bowles likely 6 weeks of augmentin post discharge with approx 3 week o/p f/u. (5) Suspected chronic obstructive pulmonary disease based on initial evaluation: Code(s): J44.9 - Chronic obstructive pulmonary disease, unspecified Status: Acute Assessment and Plan: He is prescribed an inhaler but has never been formally diagnosed with COPD. Continue scheduled bronchodilators and prescribe
[2023-10-15] MEDS: UMECLIDINIUM/VILANTEROL 62.5-25 MCG ELLIPTA 1 PUFF INHALATION (07:44)
[2023-10-15 07:45] VITALS: RESP 20
[2023-10-15 08:00] VITALS: O2SAT 95
[2023-10-15] MEDS: hydroCHLOROthiazide 25 MG TABLET 50 MG PO (08:55)
[2023-10-15] MEDS: OLMESARTAN MEDOXOMIL 20 MG TABLET 40 MG PO (08:55)
[2023-10-15] MEDS: ATORVASTATIN 20 MG TABLET PO (08:55)
[2023-10-15] MEDS: guaiFENesin 12 HR 600 MG TABCR PO (08:55)
[2023-10-15] MEDS: LORATADINE 10 MG TABLET PO (08:55)
[2023-10-15] MEDS: ENOXAPARIN 40 MG/0.4 ML SYRINGE SUB-Q (08:56)
[2023-10-15] MEDS: minoxidiL 2.5 MG TABLET PO (09:57)
[2023-10-15 13:11] LABS: ANA Cascade Screen Negative (Negative)
--- NOTE | 2023-10-15 13:33 | PM.PNPUL ---
Progress Note: A&P Assessment and Plan (1) COPD (chronic obstructive pulmonary disease): Code(s): J44.9 - Chronic obstructive pulmonary disease, unspecified Status: Acute Assessment and Plan: Patient carries a diagnosis of COPD. Patient with 42 pack year history tobacco use, currently smoking 1 pack per day prior to admission. I have no PFTs. CT scan of the chest shows no bullous emphysema. Home medications include Anoro Ellipta. At baseline he has 2 block dyspnea on exertion. Eosinophils on admission was 113 per micro L. he has hypoxic respiratory failure. He has evidence of right ventricular failure with an enlarged right ventricle, moderately enlarged right atrium decreased right ventricular function and a PASP of 38. The patient has COPD with chronic hypercarbic respiratory failure with blood gas on 10/10/2023 of 7.34/55/56 and a serum bicarbonate of 35. The patient would benefit from noninvasive ventilation to prevent further hospitalizations and deteriorations of his lung condition. BiPAP ST AVAPS was ruled out because patient would benefit from noninvasive ventilation with AVAPS AE with alarms. The patient was initially placed on BiPAP but stated the pressures were uncomfortable and he could not breathe with the machine. I changed the patient to noninvasive ventilation with the AVAPS mode and he tolerates this well. 10/13/23: The patient has no wheezing today. I do not feel he is having a COPD exacerbation at this time. Plan: I will continue levalbuterol and ipratropium nebulizers. He has no active wheezing and I will not initiate inhaled corticosteroids or systemic corticosteroids. I will initiate the process for home noninvasive and invasive ventilation with the AVAPS mode. His current settings of AVAPS, rate of 20, tidal volume 500, EPAP 4, minimal inspiratory pressure 5, maximal inspiratory pressure 25, inspiratory time 0.9 seconds and rise of 1 which is are fast as with 36% FiO2 provide adequate oxygenation and ventilation. 10/14: Patient continues to improve. He has no wheezing.. He has been walking in the room. Currently is on 3 L nasal cannula saturation 94%. I turned him to room air and over the next 2 minutes he desaturated to 89% and I placed him back on 3 L. he is afebrile. Plan: I will discontinue his nebulized levalbuterol and ipratropium. I will place him on Anoro Ellipta 62.5-25 at 1 puff q.day. I will order a home O2 assessment today in anticipation of discharge soon. Smoking cessation counseling was provided and the patient feels he will be able to remain tobacco free when he goes home. 10/15: He is planning to go home on Anoro 62.5-25 ONE puff a day. Later, PFTs and repeat O2 evaluation when he recovers from pneumonia and stabilizes. (2) Respiratory failure with hypoxia and hypercapnia: Code(s): J96.91 - Respiratory failure, unspecified with hypoxia; J96.92 - Respiratory failure, unspecified with hypercapnia Status: Acute Assessment and Plan: 10/11 Patient carries a diagnosis of COPD and presented with an ABG demonstrated hypercarbic respiratory failure with a PaCO2 of 55. His serum bicarbonate was 35. The patient has COPD with chronic hypercarbic respiratory failure with blood gas on 10/10/2023 of 7.34/55/56 and a serum bicarbonate of 35. The patient would benefit from noninvasive ventilation to prevent further hospitalizations and deteriorations of his lung condition. BiPAP ST AVAPS was ruled out because patient would benefit from noninvasive ventilation with AVAPS AE with alarms. The patient was initially placed on BiPAP but stated the pressures were uncomfortable and he could not breathe with the machine. I changed the patient to noninvasive ventilation with the AVAPS mode and he tolerates this well. Plan: The patient said the BiPAP was uncomfortable and he could not tolerate the BiPAP mode and I swi
[2023-10-15 14:00] VITALS: BP 135/93; PULSE 86; RESP 16; TEMP 36.8; O2SAT 95
--- NOTE | 2023-10-15 14:39 | P.DS_ITS ---
DS: Admitting Diagnosis Discharge Date 10/15/23 Admitting Diagnosis SOB DS: Discharge Diagnosis Discharge Diagnosis (1) Acute respiratory failure with hypoxia and hypercapnia: Code(s): J96.01 - Acute respiratory failure with hypoxia; J96.02 - Acute respiratory failure with hypercapnia Status: Acute Assessment and Plan: SpO2 was 82% on room air on arrival to the ED. ABG showed a pH of 7.337, pCO2 55.1, bicarb 28.9. * May very well have some component of chronic respiratory failure. * Suspected COPD though no official diagnosis. * Currently on BiPAP and tolerating well. * Repeat ABG this evening, wean as tolerated. 10/11: Dr. Bowles to switch patient to AVAPS, NIPPV had to be restarted due to tachycardia and respiratory distress after exam. 10/12: Tolerated AVAPS mode overnight: rate 10, VTE 500, EPAP 4, minimal inspiratory pressure 5, maximum inspiratory pressure 24, i time 0.9, rise of 1 and 36% fio2. * ABG 10/12 this morning after AVAPS mode was ph 7.35/pCO2 80, pO@ 69/HCO3 45.5 * Pulmonology to order another ABG for the morning of 10/13 prior to removal of AVAPS. * BNP has improved greatly from 6090 to 1040. * IVF had been started likely for hypotension. Will stop IVF now and give a dose of Lasix 40 mg IVP to see if this helps with his tachycardia. 10/13: Improving. Now on 3 L nc. Continue to wean as tolerated. Pulmonology is ordering NIV for home use. 10/14: Stable oxygenation - bedside oximetry test per pulm today with desats to 89%. A home o2 plan is being arranged. Additionally will need noninvasive ventilation at night - this is being arranged by pulm . Patient appears euvolemic on exam. 10/15: 3 L nc at rest and 5 L nc with activity. (2) Multifocal pneumonia: Code(s): J18.9 - Pneumonia, unspecified organism Status: Acute Assessment and Plan: Chest CT showed diffuse patchy nodular bilateral pulmonary infiltrates, likely pneumonia. * Continue azithromycin, ceftriaxone, and vancomycin (pending MRSA screen). * Send sputum for culture pending. * AFB sputum 1 of 3 collected. * Check Legionella pneumococcal antigens. * Blood cultures NGTD * Pulm repeating viral PCR today 10/11: MRSA screen negative, vancomycin discontinued 10/12: Continue with zosyn and azithromycin. Chest XR with bilateral diffuse interstitial alveolar infiltrates with no significant changes from 10/10/23. Holding steroids as he does not have any wheezing at this time. 10/13: Continue with IV abx today. Mild increase in WBC. 10/14: Expect 6 weeks Augmentin on discharge. There is a plethora of additional testing that is pending and I have discussed with pulmonology today. They will be continuing to follow on discharge. Of note, afb and sputum cx tests are pending and will likely be some time before full results are available of this testing. (3) Tobacco dependence: Code(s): F17.200 - Nicotine dependence, unspecified, uncomplicated Status: Acute Assessment and Plan: Smoking cessation is imperative though he is not motivated and declines the need for nicotine patch at this time. 10/14: Stable. (4) Cavitary lesion of lung: Code(s): J98.4 - Other disorders of lung Status: Acute Assessment and Plan: CT scan shows a 1.6 cm cavitary infiltrate in the superior segment of the right lower lobe. * Most likely related to pneumonia. * Continue follow-up to resolution is recommended to exclude malignancy. 10/11: Pulmonology consulted, appreciate assistance and guidance 10/12: Treating as a cavitary pneumonia and will need 3 weeks of antibiotics
[2023-10-15 20:39] LABS: Alpha-1-Antitrypsin, QN 269 mg/dL (83-199)
[2023-10-15 21:09] LABS: Adenovirus DNA Not Detected (Not Detected); Chlamydophila pneumoniae Not Detected (Not Detected); Coronavirus 229E Not Detected (Not Detected); Coronavirus HKU1 Not Detected (Not Detected); Coronavirus NL63 Not Detected (Not Detected); Coronavirus OC43 Not Detected (Not Detected); Human Metapneumovirus Not Detected (Not Detected); Human Parainfluenza Virus 1 Not Detected (Not Detected); Human Parainfluenza Virus 2 Not Detected (Not Detected); Human Parainfluenza Virus 3 Not Detected (Not Detected); Human Parainfluenza Virus 4 Not Detected (Not Detected); Human RSV B Not Detected (Not Detected); Influenza A Not Detected (Not Detected); Influenza B Not Detected (Not Detected); Mycoplasma pneumoniae Not Detected (Not Detected); Rhinovirus/Enterovirus Not Detected (Not Detected)
[2023-10-17 14:29] LABS: NIL 0.02 IU/mL; Quantiferon TB Plus, 1T POSITIVE (NEGATIVE); TB1-NIL 3.18 IU/mL; TB2-NIL 3.23 IU/mL
[2023-10-17 21:45] LABS: Anti Cyclic Citrullinated Pept <16 Units (<20)
[2023-10-18 04:09] LABS: Aldolase 10.4 U/L (<=8.1)
[2023-11-04 16:06] LABS: JO-1 AB <11
[2023-11-04 16:07] LABS: MI-2 Alpha Ab <11; MI-2 Beta Ab <11; TIF1 Gamma Ab <11
[2023-11-04 16:08] LABS: NXP-2 AB <11
== END 2023-10-15 17:10 | disposition home or self-care (01) | DRG 193 ==
LOC: ANHED 15:13 → ANHIMU 17:23 → ANH3MEDSUR 10-13 18:40
PROVIDERS: Internal Medicine Pulmonary Disease; Physician Assistant; Admitting Provider Internal Medicine; Emergency Provider Emergency Medicine; PCP Emergency Medicine; Visit Provider Nurse Practitioner Acute Care
DX: J18.9 Pneumonia, unspecified organism (principal); I50.31 Acute diastolic (congestive) heart failure; J96.21 Acute and chronic respiratory failure with hypoxia; J96.22 Acute and chronic respiratory failure with hypercapnia; J44.1 Chronic obstructive pulmonary disease with (acute) exacerbation; F17.210 Nicotine dependence, cigarettes, uncomplicated; I10 Essential (primary) hypertension; R00.0 Tachycardia, unspecified; I11.0 Hypertensive heart disease with heart failure; R91.1 Solitary pulmonary nodule; I27.20 Pulmonary hypertension, unspecified
CPT/HCPCS: 36415; 36600; 71045; 71046; 71275; 80048; 80053; 82085; 82103; 82104; 82375; 82550; 82805; 83036; 83050; 83605; 83735; 83880; 84182; 84439; 84443; 84480; 85025; 85380; 86036; 86038; 86200; 86225; 86235; 86331; 86364; 86430; 86480; 86606; 86609; 86738; 87015; 87040; 87070; 87077; 87116; 87205; 87206; 87385; 87449; 87633; 87637; 87641; 87899; 93005; 93306; 94002; 94003; 94618; 94640; 94762; 96361; 96365; 96366; 96367; 96372; 96375; 96376; 99285; A9270; G0378; J0456; J0696; J1650; J1940; J2543; J2930; J3370; J7030; J7040; J7120; Q9967

== ENCOUNTER 2023-11-04 08:18 | Outpatient (CLI) | payer BC, SELFPAY ==
--- NOTE | ~2023-11-04 | XR_ITS ---
EXAMINATION: XR chest 2V 11/04/2023 08:36 INDICATION: Lung abscess PROCEDURE: 2 view chest COMPARISON: 10/14/2023 FINDINGS: The lungs are clear. The cardiomediastinal silhouette is within normal limits. There are no pleural effusions. There is no pneumothorax suspected. IMPRESSION: 1: NO ACUTE CARDIOPULMONARY DISEASE. Reviewed, dictated and finalized at location B. R STITCH MACHINE OPERATOR
== END 2023-11-04 08:19 | disposition home or self-care (01) ==
PROVIDERS: PCP Emergency Medicine; Visit Provider Internal Medicine Pulmonary Disease
DX: J18.9 Pneumonia, unspecified organism (principal)
CPT/HCPCS: 71046

== ENCOUNTER 2023-11-16 14:14 | Outpatient (CLI) | payer BC, SELFPAY ==
--- NOTE | ~2023-11-16 | CT_ITS ---
EXAMINATION:CT diagnostic chest wo con DATE: 11/16/2023 15:26 INDICATION: Other disorders of lung. Cavitary lesion of lung. TECHNIQUE: Computed tomography (CT) of the chest was performed without intravenous contrast. Automate d exposure control and iterative reconstruction technique were employed. The dose-length product (DLP ) was 281.44 mGy-cm. COMPARISON: Chest CT 10/10/2023 FINDINGS: There is mild emphysema. There is mild atelectasis bilaterally. There are a few scattered n odules in the lungs measuring up to 5 mm with interval improvement. No pleural effusion. There is mil d mediastinal lymphadenopathy, likely reactive. The heart size is normal. There is a trace pericardia l effusion. There are coronary artery calcifications. There is a 6 mm cyst in the liver. There is mil d thoracic spondylosis and severe lumbar spondylosis. IMPRESSION: 1. Small pulmonary nodules with interval improvement, likely infection. 2. Mild emphysema. 3. Improved mild mediastinal lymphadenopathy, likely reactive. Reviewed, dictated and finalized at location E. OLOGY TECHNICIAN
== END 2023-11-16 14:15 | disposition home or self-care (01) ==
PROVIDERS: PCP Emergency Medicine; Visit Provider Nurse Practitioner Acute Care
DX: J98.4 Other disorders of lung (principal); J43.9 Emphysema, unspecified; R91.8 Other nonspecific abnormal finding of lung field; J18.9 Pneumonia, unspecified organism; J96.01 Acute respiratory failure with hypoxia; J96.02 Acute respiratory failure with hypercapnia; J44.9 Chronic obstructive pulmonary disease, unspecified
CPT/HCPCS: 71250

== ENCOUNTER 2023-12-28 13:25 | Outpatient (CLI) | payer SELFPAY ==
--- NOTE | 2023-12-28 16:53 | WPDPFTINT ---
PFT Interpretation This is a pulmonary function test with pre and post-bronchodilator spirometry, plethysmography and diffusing capacity. The test was performed and results interpreted in accordance with the 2019 and 2005 ATS/ERS Task Force guidelines respectively using the Global Lung Function Initiative-2012 reference equations. Patient demonstrated good effort and cooperation. Reproducibility criteria were met. The quality of the pre bronchodilator spirometry maneuver was Grade A and post bronchodilator spirometry maneuver was Grade A. Findings: Spirometry: There is decreased maximal expiratory airflow at all lung volumes with concave expiratory flow tracing. The contour the inspiratory flow tracing is normal. The pre bronchodilator FVC is 3.46 L, 85% predicted. The pre bronchodilator FEV1 is 1.96 L, 62% predicted. The pre bronchodilator FEV1: FVC ratio is 57%. The post bronchodilator FVC is 3.68 L, representing a 6% increase. The post bronchodilator FEV1 is 2.10 L, representing a 7% increase. The post bronchodilator FEV1: FVC ratio is 57%. Plethysmography: The total lung capacity is 6.84 L, 108% predicted. The functional residual capacity is 3.60 L, 104% predicted. The residual volume is 3.27 L, 155% predicted. The residual volume:Total lung capacity ratio is 48%. Diffusing capacity: The diffusing capacity unadjusted for hemoglobin and carboxyhemoglobin is 21.1, 72% predicted. The diffusing capacity adjusted for alveolar volume is 3.75, 89% predicted. Impression: There is a moderate obstructive abnormality. There is no significant improvement after inhaling a single dose of albuterol. The increase in residual volume to total lung volume ratio is consistent with hyperinflation from an obstructive abnormality. The diffusing capacity is normal. There are no prior studies for comparison
== END 2023-12-28 13:26 | disposition home or self-care (01) ==
LOC: ANHPFT 13:26
PROVIDERS: PCP Emergency Medicine; Visit Provider Internal Medicine Pulmonary Disease
DX: J44.9 Chronic obstructive pulmonary disease, unspecified (principal)
CPT/HCPCS: 94060; 94726; 94729

== ENCOUNTER 2024-05-17 10:05 | Outpatient (CLI) | payer BC, SELFPAY ==
--- NOTE | ~2024-05-17 | CT_ITS ---
EXAMINATION:CT diagnostic chest wo con DATE: 05/17/2024 10:23 INDICATION: Contact with an suspected exposure to tuberculosis. TECHNIQUE: Computed tomography (CT) of the chest was performed without intravenous contrast. Automate d exposure control and iterative reconstruction technique were employed. The dose-length product (DLP ) was 453.16 mGy-cm. COMPARISON: Chest CT 11/16/2023 FINDINGS: There is mild emphysema. There is mild atelectasis bilaterally. There are a few chronic pul monary nodules measuring up to 4 mm, likely benign. No pleural effusion. The heart size is normal. Th ere are coronary artery calcifications. No pericardial effusion. There is diffuse hepatic steatosis. There is mild thoracic spondylosis. There is mild chronic anterior wedging of multiple vertebral bodi es. IMPRESSION: 1. Mild emphysema. 2. Chronic small pulmonary nodules, likely benign. Reviewed, dictated and finalized at location A.
== END 2024-05-17 10:06 | disposition home or self-care (01) ==
LOC: ANHIMG 10:05
PROVIDERS: PCP Emergency Medicine; Visit Provider Internal Medicine Pulmonary Disease
DX: J18.9 Pneumonia, unspecified organism (principal); Z20.1 Contact with and (suspected) exposure to tuberculosis; J43.9 Emphysema, unspecified
CPT/HCPCS: 71250

== ENCOUNTER 2024-07-27 10:58 | Outpatient (CLI) | payer BC, SELFPAY ==
--- NOTE | ~2024-07-27 | XR_ITS ---
XR chest 2V 07/27/2024 11:22 Indication: Positive TB test Procedure: 2 view chest Comparison: 10/10/2023 Findings: There is right basilar atelectasis/scarring. No focal pneumonia, edema, pleural effusion or pneumothorax. Heart size normal. No acute osseous abnormality. Impression: 1: Right basilar atelectasis/scarring. Reviewed, dictated and finalized at location B. Impression: 1: Right basilar atelectasis/scarring.
== END 2024-07-27 10:59 | disposition home or self-care (01) ==
PROVIDERS: PCP Emergency Medicine
DX: J98.11 Atelectasis (principal); J98.4 Other disorders of lung; R76.12 Nonspecific reaction to cell mediated immunity measurement of gamma interferon antigen response without active tuberculosis
CPT/HCPCS: 71046

== ENCOUNTER 2025-05-20 14:05 | Outpatient (CLI) | payer BC, SELFPAY ==
--- NOTE | ~2025-05-20 | CT_ITS ---
CT Scan of the Chest without Contrast: Clinical Indication: Lung cancer screening, nicotine dependence Technique: Contiguous sections were acquired throughout the chest without intravenous contrast. Dose reduction technique was used on this scan by utilizing automated exposure control and iterative recon struction technique. The dose-length product (DLP) was 229.28 mGy-cm. COMPARISON: 05/17/2024 Findings: There is no evidence of any significant mediastinal, hilar or axillary lymphadenopathy. The mediastin al soft tissues appear normal. There is no evidence of pleural or pericardial effusion. Stable 4 mm right minimal lobe nodule present. Stable additional 5 mm right middle lobe nodule (axial image 84). Stable 3 mm right lower lobe nodule (axial image 82). There is scarring in the right midd le lobe. Probable mild emphysema. Images through the upper abdomen reveal diffuse hepatic steatosis. Impression: Lung RADS 2: Benign appearance. 12 month follow-up screening CT advised. Reviewed, dictated and finalized at [facility]. Impression: Lung RADS 2: Benign appearance. 12 month follow-up screening CT advised.
== END 2025-05-20 14:06 | disposition home or self-care (01) ==
PROVIDERS: PCP Nurse Practitioner Family; Visit Provider Internal Medicine Pulmonary Disease
DX: Z12.2 Encounter for screening for malignant neoplasm of respiratory organs (principal); Z87.891 Personal history of nicotine dependence
CPT/HCPCS: 71271